=== PATIENT | male | born 1985 | race Caucasian/White ===

== ENCOUNTER 2023-10-04 10:29 | Emergency (ER) | payer OTHER, SELFPAY ==
[2023-10-04 10:39] VITALS: BP 128/87; PULSE 73; RESP 18; TEMP 36.6; O2SAT 96; BMI 33.5
--- NOTE | 2023-10-04 11:02 | ED_ITS ---
HPI - General Adult General Date Seen: 10/04/23 Chief complaint: Abdominal Pain Stated complaint: Abdominal pain Time Seen by Provider: 10/04/23 11:02 History of Present Illness HPI narrative: 37 yo male presenting to ER from home for evaluatio nof RUQ abd pain. History of an ulcer as a child requiring hospitalization (apparently ulcer lead to GI bleeding with anemia) also had symptoms of an ulcer about a year ago which was managed at home (he did not come to the doctor to have it evaluated). He is otherwise generally healthy. No regular medications. No allergies. He occasionally takes NSAIDs, but rarely. He has noted for about 5 days he has had a sharp pain in his right upper quadrant that comes and goes. At times it is more sharp and at times gets better. It improves markedly after eating. When severe makes him a bit nauseous but has not had any vomiting. No hematemesis. Bowel movements have been brown and normal. No bloody or black stools. No diarrhea. No lower abdominal pain. No fever or chills. No weakness. He suspects he probably has another ulcer, but just wanted to come in and get checked out . He has had no previous abdominal surgeries. Pain was fairly severe last night rating 8/10. It was present this morning but milder at about a 4 5/10. Right now his pain is actually gone for the moment. Related Data Home Medications ?Medication ?Instructions ?Recorded ?Confirmed bupropion HCl PO 10/04/23 Previous Rx's ?Medication ?Instructions ?Recorded omeprazole 40 mg capsule,delayed 40 mg PO DAILY #30 caps 10/04/23 release sucralfate 1 gram tablet (Carafate) 1 g PO TID PRN #30 tabs 10/04/23 Allergies Allergy/AdvReac Type Severity Reaction Status Date / Time No Known Drug Allergies Allergy Verified 10/04/23 10:43 Exam Narrative: Exam Narrative: Constitutional: Appears well-developed and well-nourished. Alert. Conversant. Non toxic. HENT: Head: Atraumatic. Nose: Nose normal. Mouth/Throat: Oral mucosa is clear and moist. no trismus. Eyes: Conjunctivae normal. EOM normal. Pupils equal, round, and reactive to light. No scleral icterus. Neck: Normal range of motion. Neck supple. No tracheal deviation present. Cardiovascular: Normal rate, regular rhythm. No gallop. No friction rub. No murmur heard. Symmetric radial artery pulses Pulmonary/Chest: Effort normal. No stridor. No respiratory distress. No wheezes. No rales. No rhonchi . No tenderness. Abdominal: Soft. Bowel sounds normal. No distension. No mass. No tenderness. No rebound. No guarding. No HSM. No Day sign. No CVA tenderness. No right lower quadrant tenderness. Musculoskeletal: RUE: Normal range of motion. No tenderness. No deformity LUE: Normal range of motion. No tenderness. No deformity RLE: Normal range of motion. No edema. No tenderness. No deformity LLE: Normal range of motion. No edema. No tenderness. No deformity Neurological: Alert and oriented to person, place, and time. Normal strength. CN II-VII intact. No sensory deficit. GCS eye subscore is 4. GCS verbal subscore is 5. GCS motor subscore is 6. Normal coordination Skin: Skin is warm and dry. No rash noted. No pallor. Normal capillary refill. Psychiatric: Normal mood. Normal affect. Const: Vital Signs, click to edit/add: Vital Signs - 24 hr 10/04/23 10:39 Temperature 97.9 F Pulse Rate [Left P ulse Oximeter] 73 Respiratory Rate 18 Blood Pressure [Le ft Upper Arm] 128/87 Pulse Oximetry 96 Oxygen Delivery Me thod Room Air Course Vital Signs Vital signs: Initial Vital Signs Temperature 97.9 F 10/04/23 10:39 Temperature Source Temporal Artery Scan 10/04/23 10:39 Pulse Rate 73 10/04/23 10:39 Pulse Rhythm Regular 10/04/23 10:39 Pulse Strength 3+ Normal 10/04/23 10:39 Respiratory Rate 18 10/04/23 10:39 Blood Pressure 128/87 10/04/23 10:39 Blood Pressure Mean 100 10/04/23 10:39 Blood Pressure Position Sitting 10/04/23 10:39 Pulse Oximetry 96 10/04/23 10:39 Oxygen Delivery Method Room Air 10/04/23 10:39 Vital Signs Temperature 97.9 F 10/04/23 10:39 Pulse Rate 73 10/04/23 10:39 Respiratory Rate 18 10/04/23 10:39 Blood Pressure 128/87 10/04/23 10:39 Pulse Oximetry 96 10/04/23 10:39 Oxygen Delivery Method Room Air 10/04/23 10:39 Temperature 97.9 F 10/04/23 10:39 Pulse Rate 73 10/04/23 10:39 Respiratory Rate 18 10/04/23 10:39 Blood Pressure 128/87 10/04/23 10:39 Pulse Oximetry 96 10/04/23 10:39 Oxygen Delivery Method Room Air 10/04/23 10:39 Medical Decision Making MDM Narrative Medical decision making narrative: Very pleasant 37-year-old male presenting to the ER today with a five-day histor y of fluctuating sharp pain in his right upper quadrant. He has a history of peptic ulcer disease and required hospitalization when he was a child because of a bleeding ulcer. However no confirmed ulcer disease for a couple of years. Clinical presentation suggest that this is probably a duodenal ulcer. He has had right upper quadrant pain, better after meals, for several days. There is no exam evidence for perforated ulcer and no peritoneal findings. White count is reassuring. No recent black or bloody stools to suggest upper GI bleed. He has stable pulse of blood pressure. Hemoglobin is high normal. No evidence for any recent or active GI bleeding. He is currently asymptomatic. He is well-hydrated and hemodynamically stable. He is nontoxic. Differential would also include biliary colic, cholecystitis, choledocholithiasis, pancreatitis, hepatitis. Laboratory workup is reassuring with normal white count, LFTs, lipase. In discussion with the patient and his we decided to hold off on gallbladder ultrasound because overall are current pretest likelihood for gallbladder disease is very low. Differential would also include atypical or early presentation of appendicitis. However he has had pain for 5 days. He has not had any right lower quadrant tenderness or pain. No migratory pain. White count normal. No fever. No CVA tenderness to suggest kidney stone or pyelonephritis No diarrhea or other GI symptoms to suggest diverticulitis, colitis. At this point, will hold off on CT imaging as there is low likelihood of any these other inflammatory/surgical conditions. Discussed with the patient that the only way to definitively confirm peptic ulcer disease or duodenal ulcer involved EGD. We will treat empirically though with PPI, Carafate and he will continue using Tums. He will follow up with his doctor for recheck and if necessary they can arrange EGD. Also consider a Helicobacter pylori testing. He rarely takes NSAIDs. He will avoid them going forward while this problems healing. Discussed with the patient that at this point peptic ulcer disease is a presumptive diagnosis but not definitive. If he has any worsening or changing symptoms he will return to the ER immediately for re-evaluation. If he is not improving he will follow-up with his primary care, or if unable to do that come back to the ER for recheck. Questions answered with the patient and his . They are comfortable with the plan for outpatient management and discharged without further workup at this point. Prescriptions for Carafate t.i.d. p.r.n. and for omeprazole 40 mg daily sent to his pharmacy. Lab Data Labs: Lab Results 10/04/23 Range/Units 11:40 WBC 5.75 (4.50-11.00) K/uL RBC 5.20 (4.30-5.90) m/uL Hgb 14.9 (13.5-17.5) gm/dL Hct 44.9 (37.0-53.0) % MCV 86 (80-100) fL MCH 29 (26-34) pg MCHC 33 (32-36) gm/dL RDW Coeff of Jenny 12.0 (11.5-15.5) % Plt Count 174 (140-440) K/uL Neut % (Auto) 45.4 (42.0-72.0) % Lymph % (Auto) 39.3 (20-44) % [place] % (Auto) 9.2 (0.0-11.0) % Eos % (Auto) 4.7 (0.0-7.0) % Baso % (Auto) 0.7 (0.0-3.0) % Neut # (Auto) 2.61 (1.7-7.0) K/uL Lymph # (Auto) 2.26 (0.90-2.90) K/uL [place] # (Auto) 0.50 (0.00-0.90) K/UL Eos # (Auto) 0.27 (0.00-0.50) K/uL Baso # (Auto) 0.04 (0.00-0.30) K/uL Abs Immat Gran (auto) 0.04 (0.00-0.30) K/uL Imm/Tot Granulo (auto) 0.7 % Sodium 138 (135-149) mmol/L Potassium 4.1 (3.6-5.1) mmol/L Chloride 103 (96-114) mmol/L Carbon Dioxide 28 (20-32) mmol/L Anion Gap 7 (7-15) mEq/L BUN 15 (5-24) mg/dL Creatinine 0.9 (0.5-1.5) mg/dL Estimated Creat Clear 106.61 Estimated GFR 111 ml/min Glucose 96 (60-115) mg/dL Calcium 9.0 (8.4-10.6) mg/dL Total Bilirubin 0.7 (0.1-1.5) mg/dL AST 28 (12-35) U/L ALT 33 (4-50) U/L Alkaline Phosphatase 55 (40-150) U/L Total Protein 7.2 (6.0-8.3) g/dL Albumin 4.5 (3.3-5.0) g/dL Lipase 124 (23-300) U/L Discharge Plan Discharge Clinical Impression: Abdominal pain, RUQ, Duodenal ulcer Patient Disposition: Home, Self-Care Condition: Stable Instructions: Peptic Ulcer (ED), Abdominal Pain (ED) Additional Instructions: As we discussed, we suspect that your pain is probably caused by an ulcer in the 1st part of her small intestine (called a duodenal ulcer). Usually we can get this also to heal by putting you on stomach acid medications. Start taking the anti acid medicine once every day for the next couple of weeks. It should take a few days and then your also will start to heal and feel better. In the meantime, to treat your pain, you can use [id number] antacids like Tums and you can also use the prescription medication Carafate. Monitor carefully and if you are having worsening symptoms, bloody or black stools, fever, jaundice, or any other problems, please come back to the ER right away to be rechecked Please recheck with your regular doctor within about 1 week for re-evaluation. You may need further workup such as Helicobacter pylori testing or endoscopy. Prescriptions: New omeprazole 40 mg capsule,delayed release(DR/EC) 40 mg PO DAILY Qty: 30 2RF sucralfate [Carafate] 1 gram tablet 1 g PO TID PRNQty: 30 0RF No Action bupropion HCl [Wellbutrin] PO Follow Up/Referrals: Provider,Not a Local [Primary Care Provider] - Stand Alone Forms: MyHealth Info Instructions
[2023-10-04 11:55] LABS: Basophils Absolute Auto 0.04 K/uL (0.00-0.30); Basophils Percent Auto 0.7 % (0.0-3.0); Eosinophils Absolute Auto 0.27 K/uL (0.00-0.50); Eosinophils Percent Auto 4.7 % (0.0-7.0); Hematocrit 44.9 % (37.0-53.0); Hemoglobin* 14.9 gm/dL (13.5-17.5); Immature Granulocytes Abs Auto 0.04 K/uL (0.00-0.30); Immature Granulocytes Pct Auto 0.7 %; Lymphocytes Absolute Auto 2.26 K/uL (0.90-2.90); Lymphocytes Percent Auto 39.3 % (20-44); Mean Corpuscular HGB Conc 33 gm/dL (32-36); Mean Corpuscular Hemoglobin 29 pg (26-34); Mean Corpuscular Volume 86 fL (80-100); Monocytes Percent Auto 9.2 % (0.0-11.0); Neutrophils Absolute Auto 2.61 K/uL (1.7-7.0); Neutrophils Percent Auto 45.4 % (42.0-72.0); Platelet Count* 174 K/uL (140-440); White Blood Count* 5.75 K/uL (4.50-11.00)
[2023-10-04 11:57] LABS: Slide Review Reflex No
[2023-10-04 12:01] LABS: Albumin* 4.5 g/dL (3.3-5.0); Chloride* 103 mmol/L (96-114); Potassium* 4.1 mmol/L (3.6-5.1); Sodium* 138 mmol/L (135-149)
[2023-10-04 12:03] LABS: Anion Gap 7 mEq/L (7-15); Bilirubin Total* 0.7 mg/dL (0.1-1.5); Carbon Dioxide* 28 mmol/L (20-32); Creatinine* 0.9 mg/dL (0.5-1.5); Est. Creatinine Clearance* 106.61; Estimated Glomerular Filt Rate 111 ml/min
[2023-10-04 12:04] LABS: Alanine Aminotransferase* 33 U/L (4-50); Alkaline Phosphatase* 55 U/L (40-150); Aspartate Amino Transferase* 28 U/L (12-35); Blood Urea Nitrogen* 15 mg/dL (5-24); Glucose* 96 mg/dL (60-115); Lipase* 124 U/L (23-300); Total Protein* 7.2 g/dL (6.0-8.3)
== END 2023-10-04 13:16 | disposition home or self-care (01) ==
PROVIDERS: Emergency Provider Emergency Medicine
DX: R10.11 Right upper quadrant pain (principal); K26.9 Duodenal ulcer, unspecified as acute or chronic, without hemorrhage or perforation
CPT/HCPCS: 36415; 80053; 83690; 85025; 87338; 99282; 99283; 99284

== ENCOUNTER 2023-10-17 20:22 | Emergency (ER) | payer OTHER, SELFPAY ==
[2023-10-17 20:41] VITALS: BP 130/80; PULSE 71; RESP 18; TEMP 36.9; O2SAT 97; BMI 33.5
[2023-10-17 21:00] LABS: Appearance Urine Clear (Clear); Bilirubin Urine Negative (Negative); Blood Urine Negative (Negative); Color Urine Yellow (Yellow); Glucose Urine Negative (Negative); Ketones Urine Negative (Negative); Leukocyte Esterase Urine Negative (Negative); Nitrite Urine Negative (Negative); Protein Urine Negative (Negative); Specific Gravity Urine 1.015 (1.000-1.030); Urobilinogen Urine 0.2 (0.2-1.0); pH Urine 5.5 (5.0-8.5)
--- NOTE | 2023-10-17 21:18 | ED.GENADULT ---
[facility] - General Adult General Date Seen: 10/17/23 Chief complaint: Abdominal Pain Stated complaint: possible hernia Time Seen by Provider: 10/17/23 21:13 Related Data Home Medications ?Medication ?Instructions ?Recorded ?Confirmed bupropion HCl PO 10/04/23 Previous Rx's ?Medication ?Instructions ?Recorded omeprazole 40 mg capsule,delayed 40 mg PO DAILY #30 caps 10/04/23 release sucralfate 1 gram tablet (Carafate) 1 g PO TID PRN #30 tabs 10/04/23 Allergies Allergy/AdvReac Type Severity Reaction Status Date / Time No Known Drug Allergies Allergy Verified 10/17/23 20:45 PFSH PFSH Social History Smoking Status: Never smoker Second hand tobacco smoke exposure: No How often do you have a drink containing alcohol: never How often do you have six or more drinks on one occasion: Never AUDIT-C Alcohol total score: 0 Non-prescribed substance use: denies use service: No Exam Const: Vital Signs, click to edit/add: Vital Signs - 24 hr 10/17/23 20:41 Temperature 98.4 F Pulse Rate [Pulse Oximeter] 71 Respiratory Rate 18 Blood Pressure [Ri ght Upper Arm] 130/80 Pulse Oximetry 97 Oxygen Delivery Me thod Room Air Course Vital Signs Vital signs: Initial Vital Signs Temperature 98.4 F 10/17/23 20:41 Temperature Source Temporal Artery Scan 10/17/23 20:41 Pulse Rate 71 10/17/23 20:41 Respiratory Rate 18 10/17/23 20:41 Blood Pressure 130/80 10/17/23 20:41 Blood Pressure Mean 96 10/17/23 20:41 Blood Pressure Position Sitting 10/17/23 20:41 Pulse Oximetry 97 10/17/23 20:41 Oxygen Delivery Method Room Air 10/17/23 20:41 Vital Signs Temperature 98.4 F 10/17/23 20:41 Pulse Rate 71 10/17/23 20:41 Respiratory Rate 18 10/17/23 20:41 Blood Pressure 130/80 10/17/23 20:41 Pulse Oximetry 97 10/17/23 20:41 Oxygen Delivery Method Room Air 10/17/23 20:41 Temperature 98.4 F 10/17/23 20:41 Pulse Rate 71 10/17/23 20:41 Respiratory Rate 18 10/17/23 20:41 Blood Pressure 130/80 10/17/23 20:41 Pulse Oximetry 97 10/17/23 20:41 Oxygen Delivery Method Room Air 10/17/23 20:41 Medical Decision Making Lab Data Labs: Lab Results 10/17/23 Range/Units 20:53 Urine Color Yellow (Yellow) Urine Appearance Clear (Clear) Urine pH 5.5 (5.0-8.5) Ur Specific [place] 1.015 (1.000-1.030) Urine Protein Negative (Negative) Urine Glucose (UA) Negative (Negative) Urine Ketones Negative (Negative) Urine Blood Negative (Negative) Urine Nitrite Negative (Negative) Urine Bilirubin Negative (Negative) Urine Urobilinogen 0.2 (0.2-1.0) Ur Leukocyte Esterase Negative (Negative) Discharge Plan Discharge Prescriptions: No Action bupropion HCl [Wellbutrin] PO omeprazole 40 mg capsule,delayed release(DR/EC) 40 mg PO DAILY Qty: 30 2RF sucralfate [Carafate] 1 gram tablet 1 g PO TID PRNQty: 30 0RF Follow Up/Referrals: Provider,Not a Local [Primary Care Provider] -
[2023-10-17 21:28] LABS: RBC Urine 0-2 (0-2); WBC Urine 0-2 (0-5)
--- OUTSIDE RECORDS SUMMARY | 2023-10-17 21:50 | XMS_ITS | Encounter Summary ---
Author Organization [facility] Address [address] [place] [address] Care Team Providers Care Flying Teacher Name Role Phone Doctor, None Unavailable Unavailable Wilbert Baltazar DO Primary Care Provider Sudheer Levy DO Unavailable [phone] Angella Weeks Unavailable [phone] Wilbert Baltazar DO Unavailable Angella Weeks Unavailable [phone] Amy Gentile MD Unavailable [phone] Sudheer Levy DO Unavailable [phone] Encounter Details Date Type Department Care Team (Late st Contact Info) Description 09/09/2021 MyC Medical Advice [facility] [address], [address] [place] [address] Wilbert Baltazar DO [address] [facility] [address] [place], [place] [address] Social History Tobacco Use Types Packs/Day Years Used Date Smoking Tobacco: Never Smokeless Tobacco: Never Alcohol Use Standard Drinks/Week Comments Yes 0 (1 standard drink = 0.6 oz pur e alcohol) occassional PHQ-2 Answer Date Recorded PHQ-2 Score 2 04/05/2021 Sex and Gender Information Value Date Recorded Sex Assigned at Not on file Gender Identity Not on file Sexual Orientation Not on file COVID-19 Exposure Response Date Recorded In the last 10 days, have yo u been in contact with someone who was confirmed or suspected to have Coronavirus/COVID-19? No / Unsure 09/10/2021 3:39 PM CDT documented as of this encounter Plan of Treatment Not on file documented as of this encounter Visit Diagnoses Not on filedocumented in this encounter Additional Health Concerns Infection Onset Date Last Indicated Resolved Time COVID-19 08/31/2021 08/31/2021 09/21/2021 11:3 9 PM CDT documented as of this encounter Care Teams Flying Teacher Relationship Specialty Start Date End Date Wilbert Baltazar DO [address] [place] [address] PCP - General 07/06/16 Any Chavez MD 03/25/13 Sudheer Levy DO [address] [place] [address] Assigned Sleep Provider 12/27/20 3 Angella Weeks PA [address] [place], [place] [address] Physician Restaurant Assistant Manager Urology 03/03/21 Wilbert Baltazar DO [address] [place] [address] Assigned PCP 03/07/21 Angella Weeks PA [address] [place], [place] [address] Assigned Surgical Provider 03/14/2110/07/22 Amy Gentile MD [address] [place] [address] [address] [place] [address] Assigned Endocrinology Provider 10/09/21 04/20/23 Sudheer Levy DO [address] [place] [address] Assigned Sleep Provider 05/30/23 documented as of this encounter
--- OUTSIDE RECORDS SUMMARY | 2023-10-17 21:50 | XMS_ITS | Encounter Summary ---
Author Organization [facility] Address [address] [place] [address] Care Team Providers Care Educational Director Name Role Phone Doctor, None Unavailable Unavailable Wilbert Baltazar DO Primary Care Provider Sudheer Levy DO Unavailable [phone] Angella Weeks Unavailable [phone] Wilbert Baltazar DO Unavailable [phone] Angella Weeks Unavailable Amy Gentile MD Unavailable [phone] Sudheer Levy DO Unavailable [phone] Encounter Details Date Type Department Care Team (Late st Contact Info) Description 06/29/2021 Orders Only [facility] Centralized Scheduling [address] [place] [phone] Ruddy Kaiser MD [address] [place] [address] Encounter for laboratory testing for COVID-19 virus Social History Tobacco Use Types Packs/Day Years [...] Recorded In the last 10 days, have gladys u been in contact with someone who was confirmed or suspected to have Coronavirus/COVID-19? No / Unsure 06/30/2021 8:05 AM CDT documented as of this encounter Plan of Treatment Not on file documented as of this encounter Results * Asymptomatic COVID-19 Virus (Coronavirus) by PCR Nose (06/30/2021 8:09 AM CDT) SARS CoV2 PCR Negative Negative, Testing sent to reference lab. Results will be returned via unsolicited result 06/30/2021 10:19 PM CDT [facility] Comment:NEGATIVE: SARS-CoV-2 (COVID-19) RNA not detected, presumed negative. Swab NASAL STRUCTURE / Unknown Non-blood Collection / Unknown 06/30/2021 8:09 AM CDT 06/30/2021 8:09 AM CDT Narrative [facility] - 06/30/2021 10:19 PM CDT Testing was performed using the Aptima SARS-CoV-2 Assay on the [employer] Instrument System. Additional information about this Emergency Use Authorization (EUA) assay can be found via the Lab Guide. This test should be ordered for the detection of SARS-CoV-2 in individuals who meet SARS-CoV-2 clinical and/or epidemiological criteria. Test performance is unknown in asymptomatic patients. This test is for in vitro diagnostic use under the FDA EUA for laboratories certified under CLIA to perform high complexity testing. This test has not been FDA cleared or approved. A negative result does not rule out the presence of PCR inhibitors in the specimen or target RNA in concentration below the limit of detection for the assay. The possibility of a false negative should be considered if the patient's recent exposure or clinical presentation suggests COVID-19. This test was validated by the [facility]. This laboratory is certified under the Clinical Laboratory Improvement Amendments of 1988 (CLIA-88) as qualified to perform high complexity laboratory testing. Ruddy Kaiser MD LAB - MICRO GENERAL ORDERABLES [facility] [address] [facility] [place] [address] [phone] documented in this encounter Visit Diagnoses Diagnosis Encounter for laboratory testing for COVID-19 virus documented in this encounter Additional Health Concerns Infection Onset Date Last Indicated Resolved Time Rule Out COVID-19 08/31/2021 08/31/2021 08/31/2021 6:10 PM CDT COVID-19 08/31/2021 08/31/2021 09/21/2021 11:3 9 PM CDT documented as of this encounter Care Teams Educational Director Relationship Specialty Start Date End Date Wilbert Baltazar, [address] [place] [address] PCP - General 07/06/16 Doctor[facility] MD 03/25/13 Sudheer Levy DO [address] [place] [address] Assigned Sleep Provider 12/27/20 3 Angella Weeks PA [address] [place] [address] Physician Yarn Dumper Urology 03/03/21 Wilbert Baltazar DO [address] [place] [address] Assigned PCP 03/07/21 Angella Weeks PA [address] [place] [address] Assigned Surgical Provider 03/14/2110/07/22 Amy Gentile MD [address] [place] [address] [address] [place] [address] Assigned Endocrinology Provider 10/09/21 04/20/23 Sudheer Levy DO [address] [address] Assigned Sleep Provider 05/30/23 documented as of this encounter
--- OUTSIDE RECORDS SUMMARY | 2023-10-17 21:50 | XMS_ITS | Encounter Summary ---
Author Organization [facility] Address [address] [place] [address] Care Team Providers Care Drafting Engineer Name Role Phone Doctor, None Unavailable Unavailable Wilbert Baltazar DO Primary Care Provider Jacinta Villegas MD Unavailable [phone] Sudheer Levy DO Unavailable [phone] Angella Weeks Unavailable [phone] Wilbert Baltazar DO Unavailable [phone] Angella Weeks Unavailable Amy Gentile MD Unavailable [phone] Sudheer Levy DO Unavailable [phone] Encounter Details Date Type Department Care Team (Late st Contact Info) Description [facility]/2020 [facility] Laurie Cisneros [facility] [address] [place] [id number] Social History Tobacco Use Types Packs/Day Years Used Date Smoking Tobacco: Never Smokeless Tobacco: Never Alcohol Use Standard Drinks/Week Comments Yes 0 (1 standard drink = 0.6 oz pur e alcohol) occassional PHQ-2 Answer Date Recorded PHQ-2 Score 0 05/14/2020 Sex and Gender Information Value Date Recorded Sex Assigned at Not on file Gender Identity Not on file Sexual Orientation Not on file COVID-19 Exposure Response Date Recorded In the last month, have you been in contact with someone who was confirmed or suspected to have Coronavirus / COVID-19? Yes 06/02/2020 2:07 PM CDT documented as of this encounter Plan of Treatment Not on file documented as of this encounter Visit Diagnoses Not on filedocumented in this encounter Additional Health Concerns Infection Onset Date Last Indicated Resolved Time COVID-19 05/31/2020 05/31/2020 06/21/2020 11:3 9 PM CDT Rule Out COVID-19 10/21/2020 10/21/2020 10/22/2020 5:50 PM CDT Rule Out COVID-19 08/31/2021 08/31/2021 08/31/2021 6:10 PM CDT COVID-19 08/31/2021 08/31/2021 09/21/2021 11:3 9 PM CDT documented as of this encounter Care Teams Drafting Engineer Relationship Specialty Start Date End Date Wilbert Baltazar DO [address] [place], [place] [address] PCP - General 07/06/16 [facility] MD 03/25/13 Jacinta Villegas MD [address] [place] [address] [address] [place], [place] [id number] Assigned PCP 07/22/20 03/06/21 Sudheer Levy DO [address] [id number] Assigned Sleep Provider 12/27/20 3 Angella Weeks PA [address] [place], [place] [id number] Physician Booster Plant Operator Urology 03/03/21 Wilbert Baltazar DO [address] [place], [place] [address] Assigned PCP 03/07/21 Angella Weeks PA [address] [address] Assigned Surgical Provider 03/14/2110/07/22 Amy Gentile MD [address] [place] [address] [address] [place], [place] [address] Assigned Endocrinology Provider 10/09/21 04/20/23 Sudheer Levy DO [address] [address] Assigned Sleep Provider 05/30/23 documented as of this encounter
--- OUTSIDE RECORDS SUMMARY | 2023-10-17 21:50 | XMS_ITS | Clinical Summary ---
Author Organization [facility] [facility] Address [place], [place] [address] Care Team Providers Care Gravity Prospecting Supervisor Name Role Phone Clinic, No Pcp Or Primary Care Provider Unavaila ble Allergies No known active allergies Medications Medication Sig Dispensed Refills Start Date End Date Status ibuprofen (ADVIL; MOTRIN) 200 mg tablet Take 200 mg by mouth. Active loratadine (CLARITIN) 10 mg tablet Take 10 mg by mouth. Active sildenafil citrate (VIAGRA) 50 mg tablet Take 50 mg by mouth. 01/15/2018 Active Encounters Date Type Department Care Team Description 10/06/2023 Telephone [facility] [address] [place] [address] [place], [place] Appointment 10/03/2023 Telephone [facility] [address] [place], [place] [address] [place] Appointment from Last 3 Months Family History Medical History Relation Name Comments Unknown Father Unknown Mother Relation Name Status Comments Father Alive Mother Alive Social History Tobacco Use Types Packs/Day Years Used Date Smoking Tobacco: Never Smokeless Tobacco: Never Alcohol Use Standard Drinks/Week Comments Yes 0 (1 standard drink = 0.6 oz pur e alcohol) Sex and Gender Information Value Date Recorded Sex Assigned at Not on file Gender Identity Not on file Sexual Orientation Not on file Obstetrics History Last Filed Vital Signs Vital Sign Reading Time Taken Comments Blood Pressure 115/76 12/13/2018 8:35 PM SEWAGE TREATMENT PLANT OPERATOR Pulse 62 12/13/2018 8:35 PM SEWAGE TREATMENT PLANT OPERATOR Temperature 36.9 ??C (98.4 ??F) 12/13/2018 8:35 PM CS T Respiratory Rate 18 12/13/2018 8:35 PM SEWAGE TREATMENT PLANT OPERATOR Oxygen Saturation 95% 12/13/2018 8:35 PM SEWAGE TREATMENT PLANT OPERATOR Inhaled Oxygen Concentration - - Weight 95.3 kg (210 lb) 12/13/2018 8:35 PM SEWAGE TREATMENT PLANT OPERATOR Height 170.2 cm (5' 7) 12/13/2018 8:35 PM SEWAGE TREATMENT PLANT OPERATOR Body Mass Index 32.89 12/13/2018 8:35 PM SEWAGE TREATMENT PLANT OPERATOR Plan of Treatment Upcoming Encounters Date Type Department Care Team (Late st Contact Info) Description 10/18/2023 1:00 PM CDT Appointment [facility] [address] [place] [address] Health Maintenance Due Date Last Done Comments Tdap 12/19/1994 Depression screening for age 12+ 1995 HIV for age 15-65 12/19/1998 Hepatitis C screening for ag e 18-79 12/19/2001 Tetanus booster 2003 BMI (ht and wt on same day) for age 18+ 04/04/2016 04/04/2015 Lipids for age 35-44 12/19/2018 COVID-19 vaccine series (2022- season) 2023 03/03/2021 Influenza for age 9-49 10/08/2023 Pneumococcal series for age 6-64 Aged Out No longer eligible based on patient's age to complete this topic Care Teams Gravity Prospecting Supervisor Relationship Specialty Start Date End Date Clinic, No Pcp Or . PCP - General 12/13/18
--- OUTSIDE RECORDS SUMMARY | 2023-10-17 21:50 | XMS_ITS | Encounter Summary ---
Author Organization [place] Address [address] [place] [address] Care Team Providers Care Global Security Architect Name Role Phone Doctor, None Unavailable Unavailable Wilbert Baltazar DO Primary Care Provider Jacinta Villegas MD Unavailable [phone] Sudheer Leyv DO Unavailable [phone] Angella Weeks Unavailable [phone] Wilbert Baltazar DO Unavailable [phone] Angella Weeks Unavailable Amy Gentile MD Unavailable [phone] Sudheer Levy DO Unavailable [phone] Encounter Details Date Type Department Care Team (Late st Contact Info) Description 09/24/2020 [facility] [address] [id number] [facility] Social History Tobacco Use Types Packs/Day Years Used Date Smoking Tobacco: Never Smokeless Tobacco: Never Alcohol Use Standard Drinks/Week Comments Yes 0 (1 standard drink = 0.6 oz pur e alcohol) occassional PHQ-2 Answer Date Recorded PHQ-2 Score 0 05/14/2020 Sex and Gender Information Value Date Recorded Sex Assigned at Not on file Gender Identity Not on file Sexual Orientation Not on file documented as of this encounter Plan of Treatment Not on file documented as of this encounter Visit Diagnoses Not on filedocumented in this encounter Additional Health Concerns Infection Onset Date Last Indicated Resolved Time Rule Out COVID-19 10/21/2020 10/21/2020 10/22/2020 5:50 PM CDT Rule Out COVID-19 08/31/2021 08/31/2021 08/31/2021 6:10 PM CDT COVID-19 08/31/2021 08/31/2021 09/21/2021 11:3 9 PM CDT documented as of this encounter Care Teams Global Security Architect Relationship Specialty Start Date End Date Wilbert Baltazar DO [address] [place] [address] PCP - General 07/06/16 DoctorAny MD 03/25/13 Jacinta Villegas MD [address] [place] [address] Assigned PCP 07/22/20 03/06/21 Sudheer Levy DO [address] [place] [address] Assigned Sleep Provider 12/27/20 3 Angella Weeks PA [address] [place], [place] [address] Physician Inspector Outside Production Urology 03/03/21 Wilbert Baltazar DO [address] [place] [address] Assigned PCP 03/07/21 Angella Weeks PA [address] [place] [address] Assigned Surgical Provider 03/14/2110/07/22 Amy Gentile MD [address] [place] [address] 101 [place] [address] Assigned Endocrinology Provider 10/09/21 04/20/23 Sudheer Levy DO [address] [facility] [address] [place] [address] Assigned Sleep Provider 05/30/23 documented as of this encounter
--- OUTSIDE RECORDS SUMMARY | 2023-10-17 21:50 | XMS_ITS | Encounter Summary ---
Author Organization [facility] Address [address] [place] [address] Care Team Providers Care Sand Bobber Name Role Phone Doctor, None Unavailable Unavailable Wilbert Baltazar DO Primary Care Provider Jacinta Villegas MD Unavailable [phone] Sudheer Levy DO Unavailable [phone] Angella Weeks Unavailable [phone] Wilbert Baltazar DO Unavailable [phone] Angella Weeks Unavailable Amy Gentile MD Unavailable [phone] Sudheer Levy DO Unavailable [phone] Encounter Details Date Type Department Care Team (Late st Contact Info) Description 12/23/2020 [facility] [address], [address] [place] [address] Laura Garcia Social History Tobacco Use Types Packs/Day Years [...] documented as of this encounter Care Teams Sand Bobber Relationship Specialty Start Date End Date Wilbert Baltazar DO [address] [place] [address] PCP - General 07/06/16 DoctorAny MD 03/25/13 Jacinta Villegas MD [address] [place] [address] 96 [place], [place] [id number] Assigned PCP 07/22/20 03/06/21 Sudheer Levy DO [address] [place] [address] Assigned Sleep Provider 12/27/20 3 Angella Weeks PA [address] [place] [address] Physician Tower Air Traffic Control Specialist Urology 03/03/21 Wilbert Baltazar DO [address] [place] [address] Assigned PCP 03/07/21 Angella Weeks PA [address] [place] [address] Assigned Surgical Provider 03/14/2110/07/22 Amy Gentile MD [address] [place] [address] 101 [place] [address] Assigned Endocrinology Provider 10/09/21 04/20/23 Sudheer Levy DO [address] [place] [address] Assigned Sleep Provider 05/30/23 documented as of this encounter
--- OUTSIDE RECORDS SUMMARY | 2023-10-17 21:50 | XMS_ITS | Encounter Summary ---
Author Organization [place] Address [address] [place] [address] Care Team Providers Care Machine Erector Name Role Phone Doctor, None Unavailable Unavailable Wilbert Baltazar DO Primary Care Provider Sudheer Levy DO Unavailable [phone] Angella Weeks Unavailable [phone] Wilbert Baltazar DO Unavailable [phone] Angella Weeks Unavailable [phone] Amy Gentile MD Unavailable [phone] Sudheer Levy DO Unavailable [phone] Encounter Details Date Type Department Care Team (Late st Contact Info) Description 11/02/2021 MyC Medical Advice [facility] [address] [place] [address] [place], [address] [place] [address] Geneva Monahan RN Social History Tobacco Use Types Packs/Day Years Used Date Smoking Tobacco: Never Smokeless Tobacco: Never Alcohol Use Standard Drinks/Week Comments Yes 0 (1 standard drink = 0.6 oz pur e alcohol) occassional PHQ-2 Answer Date Recorded PHQ-2 Score 3 10/04/2021 Sex and Gender Information Value Date Recorded Sex Assigned at Not on file Gender Identity Not on file Sexual Orientation Not on file COVID-19 Exposure Response Date Recorded In the last 10 days, have yo u been in contact with someone who was confirmed or suspected to have Coronavirus/COVID-19? No / Unsure 10/13/2021 9:11 AM CDT documented as of this encounter Plan of Treatment Not on file documented as of this encounter Visit Diagnoses Not on filedocumented in this encounter Additional Health Concerns Assessment Noted Time PHQ-9 Depression Total Score: 7 10/05/19 22 5:49 PM CDT documented as of this encounter Care Teams Machine Erector Relationship Specialty Start Date End Date Wilbert Baltazar DO [address] [place] [address] PCP - General 07/06/16 Any Chavez MD 03/25/13 Sudheer Levy DO [address] [place] [address] Assigned Sleep Provider 12/27/20 3 Angella Weeks PA [address] [place] [address] Physician Rod Piler Urology 03/03/21 Wilbert Baltazar DO [address] [place] [address] Assigned PCP 03/07/21 Angella Weeks PA [address] [place] [address] Assigned Surgical Provider 03/14/2110/07/22 Amy Gentile MD [address] [place] [address] 101 [place] [address] Assigned Endocrinology Provider 10/09/21 04/20/23 Sudheer Levy DO [address] [place] [address] Assigned Sleep Provider 05/30/23 documented as of this encounter
--- OUTSIDE RECORDS SUMMARY | 2023-10-17 21:50 | XMS_ITS | Clinical Summary ---
Author Organization [facility] Address [address] [place] [address] Care Team Providers Care Mushroom Sorter Grader Name Role Phone Doctor, None MD Unavailable Unavailable Wilbert Baltazar DO Primary Care Provider Angella Weeks Unavailable [phone] Wilbert Baltazar DO Unavailable [phone] Sudheer Levy DO Unavailable [phone] Allergies No known active allergies Medications Medication Sig Dispensed Refills Start Date End Date Status omeprazole (PRILOSEC OTC) 20 MG EC tablet Take 20 mg by mouth daily Active cetirizine (ZYRTEC) 10 MG tablet Take 10 mg by mouth daily Active ibuprofen (ADVIL/MOTRIN) 200 MG tablet Take 200 mg by mouth Active loratadine (CLARITIN) 10 MG tablet Take 10 mg by mouth Active propranolol (INDERAL) 10 MG tabletIndications:Anx iety Take 1-2 tablets (10-20 mg) by mouth 3 times daily 30 tablet 1 06/21/2023 Active buPROPion (WELLBUTRIN XL) 150 MG 24 hr tabletIndications:Anx iety Take 1 tablet (150 mg) by mouth every morning 90 tablet 1 08/21/2023 Active Active Problems Problem Noted Date Diagnosed Date Class 2 severe obesity due t o excess calories with serious comorbidity in adult 06/21/2023 History of COVID-19 10/04/2021 Thyrotoxicosis without thyro id storm, unspecified thyrotoxicosis type 10/04/2021 Esophageal Reflux Overview: Created by Conversion Encounters Date Type Department Care Team Description 08/21/2023 [facility] [address], [address] [place] [address] Wilbert Baltazar, DO Refill Request from Last 3 Months Immunizations Name Administration Dates Next Due COVID-19 Monovalent 12+ (Pfizer 2021) 03/03/2021 HPV9 03/03/2021 Influenza Vaccine >6 months,quad, PF 11/06/2020, 11/13/2018 Influenza Vaccine, 6+MO IM ( QUADRIVALENT W/PRESERVATIVES) 10/20/2011 TDAP (Adacel,Boostrix) 04/29/2009 Family History Medical History Relation Comments Testicular cancer Brother Thyroid Disease Brother Fibromyalgia Father Snoring Father Heart Disease Maternal Grandfather Cerebrovascular Disease Mother Heart Disease Mother Hypertension Mother Snoring Mother Diabetes No family hx of Relation Status Comments Brother Father Maternal Grandfather Mother Social History Tobacco Use Types Packs/Day Years Used Date Smoking Tobacco: Never Passive Smoke Exposure: Past Smokeless Tobacco: Never Alcohol Use Standard Drinks/Week Comments Yes 0 (1 standard drink = 0.6 oz pur e alcohol) occassional PHQ-2 Answer Date Recorded PHQ-2 Score 2 06/21/2023 Adolescent Education Answer Date Record ed Getting School Help Needed Not on file 11/04 Interpersonal Safety Answer Date Record ed Do you feel physically and e motionally safe where you currently live? Yes 06/21/2023 Within the past 12 months, h ave you been hit, slapped, kicked or otherwise physically hurt by someone? No 06/21/2023 Within the past 12 months, h ave you been humiliated or emotionally abused in other ways by your partner or ex-partner? No 06/21/2023 Sex and Gender Information Value Date Recorded Sex Assigned at Not on file Gender Identity Not on file Sexual Orientation Not on file Last Filed Vital Signs Vital Sign Reading Time Taken Comments Blood Pressure 106/64 06/21/2023 1:19 PM CDT Pulse 68 06/21/2023 1:19 PM CDT Temperature 37.2 ??C (98.9 ??F) 06/21/2023 1:19 PM CD T Respiratory Rate 14 06/21/2023 1:19 PM CDT Oxygen Saturation 97% 06/21/2023 1:19 PM CDT Inhaled Oxygen Concentration - - Weight 111.4 kg (245 lb 8 oz) 06/21/2023 1:19 PM CDT Height 172.7 cm (5' 8) 06/21/2023 1:19 PM CDT Body Mass Index 37.33 06/21/2023 1:19 PM CDT Plan of Treatment Health Maintenance Due Date Last Done Comments ADVANCE CARE PLANNING 1983 ANNUAL REVIEW OF HM ORDERS 1983 HEPATITIS B IMMUNIZATION (1 of 3 - 19+ 3-dose series) 12/19/2002 YEARLY PREVENTIVE VISIT 10/16/2015 10/15/2014, 10/15 DTAP/TDAP/TD IMMUNIZATION (2 - Td or Tdap) 04/30/2019 04/29/2009 HPV IMMUNIZATION (2 - 3-dose SCDM series) 03/31/2021 03/03/2021 COVID-19 Vaccine ( season) 2023 03/03/2021, 06/17/2020, 05/27/2020 INFLUENZA VACCINE (#1) 2023 , 11/13/2018, 10/20/2011 GLUCOSE 06/20/2026 06/21/2023, 0806/2021, 03/03/2021, Additional history exists HEPATITIS C SCREENING Completed 07/11/2016 HIV SCREENING Completed 07/11/2016 PHQ-2 (once per calendar year) Completed 06/21/2023, 05/15/2023, 10/04/2021, Additional history exists MENINGITIS IMMUNIZATION Aged Out No l onger eligible based on patient's age to complete this topic Pneumococcal Vaccine: Pediatrics (0 to 5 Years) and At-Risk Patients (6 to 64 Years) Aged Out No longer eligible based on patient's age to complete this topic RSV MONOCLONAL ANTIBODY Aged Out No l onger eligible based on patient's age to complete this topic Procedures Procedure Name Priority Date/Time Associated Diagnosis Comments COMPREHENSIVE METABOLIC PANEL Routine 06/21/2023 1:58 PM CDT Fatigue, unspecified type HIV ANTIGEN ANTIBODY COMBO Routine 07/11/2016 2:40 PM CDT HEPATITIS C ANTIBODY Routine 07/11/2016 2:40 PM CDT from Last 3 Months or Most Recently Relevant to Health Maintenance Results * Comprehensive metabolic panel (BMP + Alb, Alk Phos, ALT, AST, Total. Bili, TP) (06/21/2023 1:58 PM CDT) Sodium 139 135 - 145 mmol/L 06/22/2023 5:15 PM CDT [facility] Comment:Reference intervals for this test were updated on 11/01/2022 to more accurately reflect our healthy population. There may be differences in the flagging of prior results with similar values performed with this method. Interpretation of those prior results can be made in the context of the updated reference intervals. Potassium 4.2 3.4 - 5.3 mmol/L 06/22/2023 5:15 PM CDT [facility] Carbon Dioxide (CO2) 24 22 - 29 mmol/L 06/22/2023 5:15 PM CDT [facility] Anion Gap 11 7 - 15 mmol/L 06/22/2023 5:15 PM CDT [facility] Urea Nitrogen 15.0 6.0 - 20.0 mg/dL 06/22/2023 5:15 PM CDT [facility] Creatinine 1.10 0.67 - 1.17 mg/dL 06/22/2023 5:15 PM CDT [facility] GFR Estimate 88 >60 mL/min/1. 73m2 06/22/2023 5:15 PM CDT [facility] Calcium 8.7 8.6 - 10.0 mg/dL 06/22/2023 5:15 PM CDT [facility] Chloride 104 98 - 107 mmol/L 06/22/2023 5:15 PM CDT [facility] Glucose 91 70 - 99 mg/dL 06/22/2023 5:15 PM CDT [facility] Alkaline Phosphatase 58 40 - 150 U/L 06/22/2023 5:15 PM CDT [facility] Comment:Reference intervals for this test were updated on 2022 to more accurately reflect our healthy population. There may be differences in the flagging of prior results with similar values performed with this method. Interpretation of those prior results can be made in the context of the updated reference intervals. AST 26 0 - 45 U/L 06/22/2023 5:15 PM CDT [facility] Comment:Reference intervals for this test were updated on 07/18/2022 to more accurately reflect our healthy population. There may be differences in the flagging of prior results with similar values performed with this method. Interpretation of those prior results can be made in the context of the updated reference intervals. ALT 32 0 - 70 U/L 06/22/2023 5:15 PM CDT [facility] Comment:Reference intervals for this test were updated on 07/18/2022 to more accurately reflect our healthy population. There may be differences in the flagging of prior results with similar values performed with this method. Interpretation of those prior results can be made in the context of the updated reference intervals. Protein Total 7.2 6.4 - 8.3 g/dL 06/22/2023 5:15 PM CDT [facility] Albumin 4.6 3.5 - 5.2 g/dL 06/22/2023 5:15 PM CDT [facility] Bilirubin Total 0.6 <=1.2 mg/dL 06/22/2023 5:15 PM CDT [facility] Blood BLOOD SPECIMEN / Unknown Venipuncture / Unknown 06/21/2023 1:58 PM CDT 06/21/2023 1:58 PM CDT Wilbert Lee DO LAB - BLOOD OR DERABLES [facility] [place] [facility] [address] [place] [address] [facility], Room [address] [place] [id number] * HIV Antigen Antibody Combo (07/11/2016 2:40 PM CDT) [facility] Antigen Antibody Combo Negative Negative 07/11/2016 9:54 PM CDT [facility] Blood specimen (specimen) Venipuncture / Unknown 07/11/2016 2:40 PM CDT 07/11/2016 9:03 PM CDT Wilbert Lee DO LAB - BLOOD OR DERABLES [facility] [address] [address], [facility] [address] [address] * Hepatitis C antibody (07/11/2016 2:40 PM CDT) Hepatitis C Antibody Negative Negative 07/12/2016 8:22 AM CDT [facility] Blood specimen (specimen) Venipuncture / Unknown 07/11/2016 2:40 PM CDT 07/11/2016 9:03 PM CDT Wilbert Lee DO LAB - BLOOD OR DERABLES Performing Organization Address [facility] Co de Phone Number [facility] [address] [address], [facility] [address] [place] [address] from Last 3 Months or Most Recently Relevant to Health Maintenance Care Teams Mushroom Sorter Grader Relationship Specialty Start Date End Date Wilbert Baltazar DO [address] [place] [address] PCP - General 07/06/16 Doctor, Any, 03/25/13 Angella Weeks PA [address] [place] [address] Physician Service Member Urology 03/03/21 Wilbert Baltazar DO [address] [place] [address] Assigned PCP 03/07/21 Sudheer Levy DO [address] [place], [place] [address] Assigned Sleep Provider 05/30/23
--- OUTSIDE RECORDS SUMMARY | 2023-10-17 21:50 | XMS_ITS | Referral Summary ---
Author Organization [facility] Address [address] [place] [address] Care Team Providers Care Gas Or Water Meter Installer Name Role Phone Doctor, None MD Unavailable Unavailable Wilbert Baltazar DO Primary Care Provider Angella Weeks Unavailable [phone] Wilbert Baltazar DO Unavailable [phone] Sudheer Levy DO Unavailable [phone] Encounters Date Type Department Care Team Description 08/21/2023 Refill [facility] [address] [facility], [address] [place] [address] Wilbert Baltazar, Refill Request from Last 3 Months Allergies No known active allergies Medications Medication [...] 10/04/2021 Esophageal Reflux Overview: Created by Conversion Immunizations Name Administration Dates Next Due COVID-19 Monovalent 12+ (Pfizer 2021) 03/03/2021 HPV9 03/03/2021 Influenza Vaccine >6 months,quad, PF 11/06/2020, 11/13/2018 Influenza Vaccine, 6+MO IM ( QUADRIVALENT W/PRESERVATIVES) 10/20/2011 TDAP (Adacel,Boostrix) 04/29/2009 Social History Tobacco Use Types Packs/Day Years [...] 06/21/2023 1:19 PM CDT Plan of Treatment Not on file Procedures Procedure Name Priority Date/Time Associated Diagnosis [...] LAB - BLOOD OR DERABLES [facility] [place] [facility] [address] [facility], [address] [place] [id number], [facility] * HIV Antigen Antibody Combo (07/11/2016 2:40 PM CDT) [facility] HIV Antigen Antibody Combo Negative Negative 07/11/2016 9:54 PM CDT [facility] Blood specimen (specimen) Venipuncture / Unknown 07/11/2016 2:40 PM CDT 07/11/2016 9:03 PM CDT Wilbert Lee DO LAB - BLOOD OR DERABLES Performing Organization Address [facility] Co de Phone Number [facility] [address] [address], [facility] [address] [address] * Hepatitis C antibody (07/11/2016 2:40 PM CDT) [facility] Hepatitis C Antibody Negative Negative 07/12/2016 8:22 AM CDT [facility] Blood specimen (specimen) Venipuncture / Unknown 07/11/2016 2:40 PM CDT 07/11/2016 9:03 PM CDT Wilbert Lee DO LAB - BLOOD OR DERABLES Performing Organization Address [facility] de Phone Number [facility] [address] [address], [address] [address] from Last 3 Months or Most Recently Relevant to Health Maintenance Care Teams Gas Or Water Meter Installer Relationship Specialty Start Date End Date Wilbert Baltazar DO [address] [facility] [address] [place] [address] PCP - General 07/06/16 DoctorAny MD 03/25/13 Angella Weeks PA [address] [facility] [address] [place] [address] Physician Boy'S Adviser Urology 03/03/21 Wilbert Baltazar DO [address] [facility] [address] [place] [address] Assigned PCP 03/07/21 Sudheer Levy DO [address] [facility] [address] [place] [address] Assigned Sleep Provider 05/30/23
--- OUTSIDE RECORDS SUMMARY | 2023-10-17 21:50 | XMS_ITS | Encounter Summary ---
Author Organization [place] Address [address] [place] [address] Care Team Providers Care Granite Sandblaster Apprentice Name Role Phone Doctor, None Unavailable Unavailable Wilbert Baltaazr DO Primary Care Provider Sudheer Levy DO Unavailable [phone] Angella Weeks Unavailable [phone] Wilbert Baltazar DO Unavailable Angella Weeks Unavailable Amy Gentile MD Unavailable Sudheer Leyv DO Unavailable Reason for Visit * Reason Onset Date Comments MyChart Communication 09/21/2021 Thyroid la bs follow-up Encounter Details Date Type Department Care Team (Late st Contact Info) Description 09/21/2021 MyC Medical Advice [facility] [address], [address] [place] [address] Wilbert Baltazar DO [address] [facility] [address] [place] [address] MyChart Communication (Thyroid labs follow... Social History Tobacco Use Types Packs/Day Years [...] suspected to have Coronavirus/COVID-19? No / Unsure 09/23/2021 2:27 PM CDT documented as of this encounter Miscellaneous Notes * Telephone Encounter - Helen Johnson RN - 09/28/2021 7:25 AM CDT DD, Please see below MyChart message and advise. Helen Leong RN documented in this encounter Plan of Treatment Not on file documented as of this encounter Visit Diagnoses Not on filedocumented in this encounter Additional Health Concerns Infection Onset Date Last Indicated Resolved Time COVID-19 08/31/2021 08/31/2021 09/21/2021 11:3 9 PM CDT documented as of this encounter Care Teams Granite Sandblaster Apprentice Relationship Specialty Start Date End Date Wilbert Baltazar DO [address] [id number] PCP - General 07/06/16 DoctorAny MD 03/25/13 Sudheer Levy DO [address] 122774 Assigned Sleep Provider 12/27/20 3 Angella Weeks PA [address] [facility] 106 [place], [place] [id number] Physician Esthetician Urology 03/03/21 Wilbert Baltazar DO [address] 916386 Assigned PCP 03/07/21 Angella Weeks PA [address] [address] 843254 Assigned Surgical Provider 03/14/2110/07/22 Amy Gentile MD [address] [place] [address]6915 Assigned Endocrinology Provider 10/09/21 04/20/23 Sudheer Levy DO [address] 540864 Assigned Sleep Provider 05/30/23 documented as of this encounter
--- OUTSIDE RECORDS SUMMARY | 2023-10-17 21:50 | XMS_ITS | Encounter Summary ---
Author Organization [place] Address [address] [place] [address] Care Team Providers Care Presentation Team Member Name Role Phone Doctor, None Unavailable Unavailable Wilbert Baltazar DO Primary Care Provider Jacinta Villegas MD Unavailable [phone] Sudheer Levy DO Unavailable [phone] Angella Weeks Unavailable [phone] Wilbert Baltazar DO Unavailable [phone] Angella Weeks Unavailable [phone] Amy Gentile MD Unavailable [phone] Sudheer Levy DO Unavailable [phone] Encounter Details Date Type Department Care Team (Late st Contact Info) Description [facility] Cisner[facility] [address] [facility] [address] [place] [address] Social History Tobacco Use Types Packs/Day Years Used Date Smoking Tobacco: Never Smokeless Tobacco: Never Alcohol Use Standard Drinks/Week Comments Yes 0 (1 standard drink = 0.6 oz pur e alcohol) PHQ-2 Answer Date Recorded PHQ-2 Score 0 [...] documented as of this encounter Care Teams Presentation Team Member Relationship Specialty Start Date End Date Wilbert Baltazar DO [address] [place] [place], [place] [address] PCP - General 07/06/16 DoctorAny MD 03/25/13 Jacinta Villegas MD [address] [facility] 96 [place], [place] [id number] Assigned PCP 07/22/20 03/06/21 Sudheer Levy DO [address] 436444 Assigned Sleep Provider 12/27/20 3 Angella Weeks PA [address] [place] [place], [place] [id number] Physician Arrt Technologist Urology 03/03/21 Wilbert Baltazar DO [address] [place] [place], [place] [address]406 Assigned PCP 03/07/21 Angella Weeks PA [address] 192194 Assigned Surgical Provider 03/14/2110/07/22 Amy Gentile MD [address] [place] [address] 752925 Assigned Endocrinology Provider 10/09/21 04/20/23 Sudheer Levy DO [address] 274294 Assigned Sleep Provider 05/30/23 documented as of this encounter
--- OUTSIDE RECORDS SUMMARY | 2023-10-17 21:50 | XMS_ITS | Encounter Summary ---
Author Organization [place] Address [address] [place] [address]. [place] [address] Care Team Providers Care Sericulture Teacher Name Role Phone Doctor, None MD Unavailable Unavailable Wilbert Baltazar DO Primary Care Provider Angella Weeks Unavailable [phone] Wilbert Baltazar DO Unavailable + [phone] Sudheer Levy DO Unavailable [phone] Reason for Visit * Reason Onset Date Comments Refill Request 08/21/2023 Encounter Details Date Type Department Care Team (Late st Contact Info) Description 08/21/2023 [facility] [address] [facility], [address] [place] [phone] Wilbert Baltazar, DO [address] [facility] [address] [place], [place] [address] Refill Request Social History Tobacco Use Types Packs/Day Years [...] documented as of this encounter Visit Diagnoses Diagnosis Anxiety Anxiety state, unspecified documented in this encounter Additional Health Concerns Assessment Noted Time PHQ-9 Depression Total Score: 7 10/05/19 22 5:49 PM CDT documented as of this encounter Care Teams Sericulture Teacher Relationship Specialty Start Date End Date Wilbert Baltazar DO [address] [employer] [facility] 275 [place] [address] PCP - General 07/06/16 Doctor, Any, 03/25/13 Angella Weeks PA [facility] [employer] [address] [address] Physician Bending Roll Operator Urology 03/03/21 Wilbert Baltazar DO [facility] [employer] [facility] 275 [place] [address] Assigned PCP 03/07/21 Sudheer Levy DO [address] [facility] 106 [place] [address] Assigned Sleep Provider 05/30/23 documented as of this encounter
--- OUTSIDE RECORDS SUMMARY | 2023-10-17 21:50 | XMS_ITS | Encounter Summary ---
Author Organization [place] Address [address] [place] [address] Care Team Providers Care Statement Services Representative Name Role Phone Doctor, None Unavailable Unavailable Wilbert Baltazar DO Primary Care Provider Jacinta Villegas MD Unavailable [phone] Sudheer Levy DO Unavailable [phone] Angella Weeks Unavailable [phone] Wilbert Baltazar DO Unavailable [phone] Angella Weeks Unavailable Amy Gentile MD Unavailable [phone] Sudheer Levy DO Unavailable [phone] Encounter Details Date Type Department Care Team (Late st Contact Info) Description 06/15/2020 Documentation Only [facility] [address] [place] [phone] Unknown, Provider Social History Tobacco Use Types Packs/Day Years [...] documented as of this encounter Care Teams Statement Services Representative Relationship Specialty Start Date End Date Wilbert Baltazar DO [address] [place] [place], [place] [address] PCP - General 07/06/16 DoctorAny MD 03/25/13 Jacnita Villegas MD [address] [facility] 96 [place], [place] [id number] Assigned PCP 07/22/20 03/06/21 Sudheer Levy DO [address] [place], [place] [address] Assigned Sleep Provider 12/27/20 3 Angella Weeks PA [address] [place], [place] [address] Physician Frame Changer Urology 03/03/21 Wilbert Baltazar DO [address] [place] [address] Assigned PCP 03/07/21 Angella Weeks PA [address] [facility] 106 [place] [address] Assigned Surgical Provider 03/14/2110/07/22 Amy Gentile MD [address] [place] [address] 101 [place] [address] Assigned Endocrinology Provider 10/09/21 04/20/23 Sudheer Levy DO [address] [facility] 106 [place], [place] [address]28[address] Assigned Sleep Provider 05/30/23 documented as of this encounter
--- OUTSIDE RECORDS SUMMARY | 2023-10-17 21:50 | XMS_ITS | Encounter Summary ---
Author Organization [place] Address [address] [place] [address] Care Team Providers Care Global President Name Role Phone Doctor, None Unavailable Unavailable Wilbert Baltazar DO Primary Care Provider Sudheer Levy DO Unavailable [phone] Angella Weeks Unavailable [phone] Wilbert Baltazar DO Unavailable [phone] Angella Weeks Unavailable [phone] Amy Gentile MD Unavailable [phone] Sudheer Levy DO Unavailable [phone] Encounter Details Date Type Department Care Team (Late st Contact Info) Description 04/06/2021 [facility] Sleep [address] [address] Selvin [place] Social History Tobacco Use Types Packs/Day Years [...] as of this encounter Care Teams Global President Relationship Specialty Start Date End Date Wilbert Baltazar DO [address] [place] [address] PCP - General 07/06/16 Any Chavez MD 03/25/13 Sudheer Levy DO [address] [place] [place] [address] Assigned Sleep Provider 12/27/20 3 Angella Weeks PA [address] [place] [place] [address] Physician Propeller Driven Airplane Mechanic Urology 03/03/21 Wilbert Baltazar DO [address] [place] [address] Assigned PCP 03/07/21 Angella Weeks PA [address] [place] [place] [address] Assigned Surgical Provider 03/14/2110/07/22 Amy Gentile MD [address] [place] [address] 101 [place] [address] Assigned Endocrinology Provider 10/09/21 04/20/23 Sudheer Levy DO [address] [place] [place] [address] Assigned Sleep Provider 05/30/23 documented as of this encounter
--- OUTSIDE RECORDS SUMMARY | 2023-10-17 21:50 | XMS_ITS | Encounter Summary ---
Author Organization [place] Address [address] [place] [address] Care Team Providers Care Assistant Hvac Mechanic Name Role Phone Doctor, None Unavailable Unavailable Wilbert Baltazar DO Primary Care Provider Sudheer Levy DO Unavailable [phone] Angella Weeks Unavailable [phone] Wilbert Baltazar DO Unavailable [phone] Angella Weeks Unavailable [phone] Amy Gentile MD Unavailable [phone] Sudheer Levy DO Unavailable [phone] Encounter Details Date Type Department Care Team (Late st Contact Info) Description 03/30/2021 [facility] [address] [phone] Kellen Granda CMA Social History Tobacco Use Types Packs/Day Years Used Date Smoking Tobacco: Never Smokeless Tobacco: Never Alcohol Use Standard Drinks/Week Comments Yes 0 (1 standard drink = 0.6 oz pur e alcohol) occassional PHQ-2 Answer Date Recorded PHQ-2 Score 2 03/03/2021 Sex and Gender Information Value Date Recorded Sex Assigned at Not on file Gender Identity Not on file Sexual Orientation Not on file COVID-19 Exposure Response Date Recorded In the last month, have you been in contact with someone who was confirmed or suspected to have Coronavirus / COVID-19? No / Unsure 03/03/2021 10:23 AM COMBO WELDER documented as of this encounter Plan of Treatment Not on file documented as of this encounter Visit Diagnoses Not on filedocumented in this encounter Additional Health Concerns Infection Onset Date Last Indicated Resolved Time Rule Out COVID-19 08/31/2021 08/31/2021 08/31/2021 6:10 PM CDT COVID-19 08/31/2021 08/31/2021 09/21/2021 11:3 9 PM CDT documented as of this encounter Care Teams Assistant Hvac Mechanic Relationship Specialty Start Date End Date Wilbert Baltazar, DO [address] [place] [address] PCP - General 07/06/16 DoctorAny MD 03/25/13 Sudheer Levy DO [address] [place] [address] Assigned Sleep Provider 12/27/20 3 Angella Weeks PA [address] [place], [place] [address] Physician Clinical Phlebotomist Urology 03/03/21 Wilbert Baltazar DO [address] [place] [address] Assigned PCP 03/07/21 Angella Weeks PA [address] [place], [place] [address] Assigned Surgical Provider 03/14/2110/07/22 Amy Gentile MD [address] [place] [address] 101 [place] [address] Assigned Endocrinology Provider 10/09/21 04/20/23 Sudheer Levy DO [address] [address] Assigned Sleep Provider 05/30/23 documented as of this encounter
--- OUTSIDE RECORDS SUMMARY | 2023-10-17 21:50 | XMS_ITS | Encounter Summary ---
Author Organization [place] Address [address] [place] [address] Care Team Providers Care Tender Coordinator Name Role Phone Doctor, None Unavailable Unavailable Wilbert Baltazar DO Primary Care Provider Jacinta Villegas MD Unavailable [phone] Sudheer Levy DO Unavailable [phone] Angella Weeks Unavailable [phone] Wilbert Balatzar DO Unavailable [phone] Angella Weeks Unavailable [phone] Amy Gentile MD Unavailable [phone] Sudheer Levy DO Unavailable [phone] Encounter Details Date Type Department Care Team (Late st Contact Info) Description 12/15/2020 [facility] [address] [phone] Kellen Granda CMA Social History Tobacco Use [...] documented as of this encounter Care Teams Tender Coordinator Relationship Specialty Start Date End Date Wilbert Baltazar DO [address] [place] [address] PCP - General 07/06/16 DoctorAny MD 03/25/13 Jacinta Villegas MD [address] [place] [address] Assigned PCP 07/22/20 03/06/21 Sudheer Levy DO [address] [place] [address] Assigned Sleep Provider 12/27/20 3 Angella Weeks PA [address] [place], [place] [address] Physician Director Of Food And Nutrition Urology 03/03/21 Wilbert Baltazar DO [address] [place] [address] Assigned PCP 03/07/21 Angella Weeks PA [address] [place], [place] [address] Assigned Surgical Provider 03/14/2110/07/22 Amy Gentile MD [address] [place] [address] 101 [place] [address] Assigned Endocrinology Provider 10/09/21 04/20/23 Sudheer Levy DO [address] [facility] 106 [place] [address] Assigned Sleep Provider 05/30/23 documented as of this encounter
--- OUTSIDE RECORDS SUMMARY | 2023-10-17 21:50 | XMS_ITS | Encounter Summary ---
Author Organization [place] Address [address] [place] [address] Care Team Providers Care Forge Tender Name Role Phone Doctor, None Unavailable Unavailable Wilbert Baltazar DO Primary Care Provider Jacinta Villegas MD Unavailable [phone] Sudheer Levy DO Unavailable [phone] Angella Weeks Unavailable [phone] Wilbert Baltazar DO Unavailable [phone] Angella Weeks Unavailable Amy Gentile MD Unavailable [phone] Sudheer Levy DO Unavailable [phone] Encounter Details Date Type Department Care Team (Late st Contact Info) Description [facility] [address] [facility] [address] [place] [address] Social History Tobacco Use Types Packs/Day Years [...] have Coronavirus / COVID-19? No / Unsure 05/31/2020 2:46 PM CDT documented as of this encounter Plan of Treatment Not on file documented as of this encounter Visit Diagnoses Not on filedocumented in this encounter Additional Health Concerns Infection Onset Date Last Indicated Resolved Time Rule Out COVID-19 05/31/2020 05/31/2020 05/31/2020 4:59 PM CDT COVID-19 05/31/2020 05/31/2020 06/21/2020 11:3 9 PM CDT Rule Out COVID-19 10/21/2020 10/21/2020 10/22/2020 5:50 PM CDT Rule Out COVID-19 08/31/2021 08/31/2021 08/31/2021 6:10 PM CDT COVID-19 08/31/2021 08/31/2021 09/21/2021 11:3 9 PM CDT documented as of this encounter Care Teams Forge Tender Relationship Specialty Start Date End Date Wilbert Baltazar DO [address] [address] PCP - General 07/06/16 DoctorAny MD 03/25/13 Jacinta Villegas MD [address] [facility] 96 [place], [place] [address] Assigned PCP 07/22/20 03/06/21 Sudheer Levy DO [address] [place], [place] [address] Assigned Sleep Provider 12/27/20 3 Angella Weeks PA [address] [place] [place], [place] [address] Physician Director Of Guidance Urology 03/03/21 Wilbert Baltazar DO [address] [place] [place] [address] Assigned PCP 03/07/21 Angella Weeks PA [address] [place] [place] [address] Assigned Surgical Provider 03/14/2110/07/22 Amy Gentile MD [address] [place] [address] 101 [place] [address] Assigned Endocrinology Provider 10/09/21 04/20/23 Sudheer Levy DO [address] [place] [place] [address] Assigned Sleep Provider 05/30/23 documented as of this encounter
--- NOTE | 2023-10-18 00:09 | ED.GENADULT ---
HPI - General Adult General Date Seen: 10/17/23 Chief complaint: Abdominal Pain Stated complaint: possible hernia Time Seen by Provider: 10/17/23 21:13 History of Present Illness HPI narrative: This is a pleasant generally healthy 37-year-old male presenting to the ER this evening with his fiancee for evaluation of a painful periumbilical home. He has no history of any other health problems or previous abdominal surgeries. He has been a bit constipated lately and yesterday while straining on the toilet pass a BM he felt at noticed a small lump roughly an HR to incise just above his belly button. It was uncomfortable. He was able to ?pop it back in? by pressing on it with his index finger. Since then he has noticed the bump is reoccurred whenever he tries to get up or move. He is always able to ?pop it back in? by pressing with his finger. The lump is not present when he lays back and rests. No other symptoms. No generalized abdominal pain. No vomiting. No diarrhea. He is not had much stool today with has been passing normal amounts of gas. Related Data Home Medications ?Medication ?Instructions ?Recorded ?Confirmed bupropion HCl PO 10/04/23 Previous Rx's ?Medication ?Instructions ?Recorded omeprazole 40 mg capsule,delayed 40 mg PO DAILY #30 caps 10/04/23 release sucralfate 1 gram tablet (Carafate) 1 g PO TID PRN #30 tabs 10/04/23 Allergies Allergy/AdvReac Type Severity Reaction Status Date / Time No Known Drug Allergies Allergy Verified 10/17/23 20:45 PFSH PFSH Social History Smoking Status: Never smoker Second hand tobacco smoke exposure: No How often do you have a drink containing alcohol: never How often do you have six or more drinks on one occasion: Never AUDIT-C Alcohol total score: 0 Non-prescribed substance use: denies use service: No Exam Narrative: Exam Narrative: Constitutional: Appears well-developed and well-nourished. Alert. Conversant. Non toxic. HENT: Head: Atraumatic. Nose: Nose normal. Mouth/Throat: Oral mucosa is clear and moist. no trismus. Eyes: Conjunctivae normal. EOM normal. Pupils equal, round, and reactive to light. No scleral icterus. Neck: Normal range of motion. Neck supple. No tracheal deviation present. Cardiovascular: Normal rate, regular rhythm. No gallop. No friction rub. No murmur heard. Pulmonary/Chest: Effort normal. No stridor. No respiratory distress. No wheezes. No rales. No rhonchi . Abdominal: Soft. Bowel sounds normal. No distension. When supine there is no palpable mass. I think I can feel a small hernia defect in the midline just superior to the umbilicus. When the patient stands up he has does develop a 2-3 cm supra umbilical mass suggestive for an umbilical hernia. It is easily reduced by the patient and is gone when he lays back down.. No other tenderness. No rebound. No guarding. Musculoskeletal: RUE: Normal range of motion. No tenderness. No deformity LUE: Normal range of motion. No tenderness. No deformity RLE: Normal range of motion. No edema. No tenderness. No deformity LLE: Normal range of motion. No edema. No tenderness. No deformity Neurological: Alert and oriented to person, place, and time. Normal strength. CN II-VII intact. No sensory deficit. GCS eye subscore is 4. GCS verbal subscore is 5. GCS motor subscore is 6. Normal coordination Skin: Skin is warm and dry. No rash noted. No pallor. Normal capillary refill. Psychiatric: Normal mood. Normal affect. Const: Vital Signs, click to edit/add: Vital Signs - 24 hr 10/17/23 20:41 Temperature 98.4 F Pulse Rate [Pulse Oximeter] 71 Respiratory Rate 18 Blood Pressure [facility]] 130/80 Pulse Oximetry 97 Oxygen Delivery Me thod Room Air Course Vital Signs Vital signs: Initial Vital Signs Temperature 98.4 F 10/17/23 20:41 Temperature Source Temporal Artery Scan 10/17/23 20:41 Pulse Rate 71 10/17/23 20:41 Respiratory Rate 18 10/17/23 20:41 Blood Pressure 130/80 10/17/23 20:41 Blood Pressure Mean 96 10/17/23 20:41 Blood Pressure Position Sitting 10/17/23 20:41 Pulse Oximetry 97 10/17/23 20:41 Oxygen Delivery Method Room Air 10/17/23 20:41 Vital Signs Temperature 98.4 F 10/17/23 20:41 Pulse Rate 71 10/17/23 20:41 Respiratory Rate 18 10/17/23 20:41 Blood Pressure 130/80 10/17/23 20:41 Pulse Oximetry 97 10/17/23 20:41 Oxygen Delivery Method Room Air 10/17/23 20:41 Temperature 98.4 F 10/17/23 20:41 Pulse Rate 71 10/17/23 20:41 Respiratory Rate 18 10/17/23 20:41 Blood Pressure 130/80 10/17/23 20:41 Pulse Oximetry 97 10/17/23 20:41 Oxygen Delivery Method Room Air 10/17/23 20:41 Medical Decision Making MDM Narrative Medical decision making narrative: Very pleasant generally healthy 37-year-old male presenting the ER today because he developed an intermittent suprapubic mildly painful lump yesterday. Clinical exam and history are suggestive for an umbilical hernia. This appears to be a sliding hernia. No evidence for incarceration, strangulation, obstruction, or other surgical complication. Discussed in detail with the patient and his fiancee. They are comfortable with plan for outpatient management and follow-up with surgery. They would like to follow-up with surgery here in [place], however they are not sure that the [place] surgeons are in network. They will contact their insurance company tomorrow. If not able to see the surgeons here [place] they will follow-up with her primary care provider who is through the [facility] system in the [facility] and arrange a surgical consultation through their doctor's office Urinalysis obtained at triage it is normal. He is not having any urinary symptoms. At this point I do not he needs labs, CT imaging, or x-rays. Precautions for return to the ER reviewed in detail. Questions answered Lab Data Labs: Lab Results 10/17/23 Range/Units 20:53 Urine Color Yellow (Yellow) Urine Appearance Clear (Clear) Urine pH 5.5 (5.0-8.5) Ur Specific [place] 1.015 (1.000-1.030) Urine Protein Negative (Negative) Urine Glucose (UA) Negative (Negative) Urine Ketones Negative (Negative) Urine Blood Negative (Negative) Urine Nitrite Negative (Negative) Urine Bilirubin Negative (Negative) Urine Urobilinogen 0.2 (0.2-1.0) Ur Leukocyte Esterase Negative (Negative) Urine RBC 0-2 (0-2) Urine WBC 0-2 (0-5) Ur Squamous Epith Cells None (None-Few) Urine Bacteria None (None) Discharge Plan Discharge Clinical Impression: Hernia, umbilical Patient Disposition: Home, Self-Care Condition: Stable Instructions: Umbilical Hernia (ED) Additional Instructions: As we discussed, please follow-up with your regular doctor at [place] or with the [facility] surgeons. If you want to follow-up with the surgeons here in [place] you can call [phone] schedule an ER follow-up appointment to recheck for your umbilical hernia Please come back to the ER right away if you have worsening symptoms such as severe pain, or if your hernia bulges out any or not able to ?pop it? back in. Or if you developed diffuse pain, bloating, nausea, or vomiting. Prescriptions: No Action bupropion HCl [Wellbutrin] PO omeprazole 40 mg capsule,delayed release(DR/EC) 40 mg PO DAILY Qty: 30 2RF sucralfate [Carafate] 1 gram tablet 1 g PO TID PRNQty: 30 0RF Follow Up/Referrals: Provider,Not a Local [Primary Care Provider] - Stand Alone Forms: [facility] Info Instructions
== END 2023-10-17 21:52 | disposition home or self-care (01) ==
LOC: ED 21:47
PROVIDERS: Emergency Provider Emergency Medicine
DX: K42.9 Umbilical hernia without obstruction or gangrene (principal)
CPT/HCPCS: 81001; 99282; 99283

== ENCOUNTER 2024-06-17 13:01 | Emergency (ER) | payer OTHER, SELFPAY ==
--- OUTSIDE RECORDS SUMMARY | 2024-06-17 13:04 | XMS_ITS | Encounter Summary ---
Author Organization [facility] Address [address] [place] [address] Care Team Providers Care Cook Sauce Name Role Phone Doctor, None Unavailable Unavailable Wilbert Baltazar DO Primary Care Provider Sudheer Levy DO Unavailable Angella eWeks Unavailable [phone] Wilbert Baltazar DO Unavailable Angella Weeks Unavailable [phone] Amy Gentile MD Unavailable Sudheer Levy DO Unavailable Tangela Dupree MD Unavailable Reason for Visit * Reason Onset Date Comments MyChart Communication 09/21/2021 Thyroid la bs follow-up Encounter Details Date Type Department Care Team (Late st Contact Info) Description 09/21/2021 MyC Medical Advice [facility] [address], [address] [place] [address] Wilbert Baltazar DO [address] [place] [address] MyChart Communication (Thyroid labs follow... Social History Tobacco Use Types Packs/Day Years Used Date Smoking Tobacco: Never Smokeless Tobacco: Never Alcohol Use Standard Drinks/Week Comments Yes 0 (1 standard drink = 0.6 oz pur e alcohol) occassional PHQ-2 Answer Date Recorded PHQ-2 Score 2 04/05/2021 Sex and Gender Information Value Date Recorded Sex Assigned at Not on file Legal Sex Male 3:27 AM SCAFFOLD BUILDER Gender Identity Not on file Sexual Orientation Not on file COVID-19 Exposure Response Date Recorded In the last 10 days, have yo u been in contact with someone who was confirmed or suspected to have Coronavirus/COVID-19? No / Unsure 09/23/2021 2:27 PM CDT documented as of this encounter Miscellaneous Notes * Telephone Encounter - Helen Johsnon RN - 09/28/2021 7:25 AM CDT DD, [...] documented as of this encounter Care Teams Cook Sauce Relationship Specialty Start Date End Date Wilbert Baltazar DO [address] [facility] [address] [place] [address] PCP - General 07/06/16 DoctorAny MD 03/25/13 Sudheer Levy DO [address] [place], [place] [address] Assigned Sleep Provider 12/27/20 3 Angella Weeks PA [address] [place], [place] [id number] Physician Military Aircraft Designer Urology 03/03/21 Wilbert Baltazar DO [address] [facility] [address] [place] [address] Assigned PCP 03/07/21 Angella Weeks PA [address] [place] [address] Assigned Surgical Provider 03/14/2110/07/22 Amy Gentile MD [address] [place], [place] [address] Assigned Endocrinology Provider 10/09/21 04/20/23 Sudheer Levy DO [address] [place], [place] [address] Assigned Sleep Provider 05/30/23 Tangela Dupree MD [address] [place], [place] [address] Assigned Surgical Provider 11/29/23 documented as of this encounter
--- OUTSIDE RECORDS SUMMARY | 2024-06-17 13:04 | XMS_ITS | Encounter Summary ---
Author Organization [facility] Address [address] [place] [address] Care Team Providers Care Lip And Gate Builder Name Role Phone Doctor, None Unavailable Unavailable Wilbert Baltazar DO Primary Care Provider Sudheer Levy DO Unavailable Angella Weeks Unavailable Wilbert Baltazar DO Unavailable Angella Weeks Unavailable Amy Gentile MD Unavailable [phone] Sudheer Levy DO Unavailable [phone] Tangela Dupree MD Unavailable Encounter Details Date Type Department Care Team (Late st Contact Info) Description 06/29/2021 Orders Only [facility] Centralized Scheduling Replaced by [facility] [place] [address] Ruddy Kaiser MD [address] [place] [address] Encounter for laboratory testing for COVID-19 virus [...] on file 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 Additional information about this Emergency [...] COVID-19. This test was validated by the [facility] Diseases Diagnostic [facility]. This laboratory is certified under the Clinical Laboratory Improvement Amendments of 1988 (CLIA-88) as qualified to perform high complexity laboratory testing. us Ruddy Kaiser MD LAB - MICRO GENERAL ORDERABLES F inal Result [facility] Inf. Diseases Diag. Lab [address] [facility], [address] [place] [address], [facility] [phone] documented in this encounter Visit Diagnoses Diagnosis Encounter for laboratory testing for COVID-19 virus documented in this encounter Additional Health Concerns Infection Onset Date Last Indicated Resolved Time Rule Out COVID-19 08/31/2021 08/31/2021 08/31/2021 6:10 PM CDT COVID-19 08/31/2021 08/31/2021 09/21/2021 11:3 9 PM CDT documented as of this encounter Care Teams Lip And Gate Builder Relationship Specialty Start Date End Date Wilbert Baltazar DO [address] [place] [address] PCP - General 07/06/16 Doctor, Any, 03/25/13 Sudheer Levy DO [address] [place], [place] [address] Assigned Sleep Provider 12/27/20 3 Angella Weeks PA [address] [place], [place] [address] Physician Technical Delivery Manager Urology 03/03/21 Wilbert Baltazar DO [address] [place] [address] Assigned PCP 03/07/21 Angella Weeks PA [address] [place] [address] Assigned Surgical Provider 03/14/2110/07/22 Amy Gentile MD [address] [place], [place] [address] Assigned Endocrinology Provider 10/09/21 04/20/23 Sudheer Levy DO [address] [place], [place] [address] Assigned Sleep Provider 05/30/23 Tangela Dupree MD [address] [place] [address] Assigned Surgical Provider 11/29/23 documented as of this encounter
--- OUTSIDE RECORDS SUMMARY | 2024-06-17 13:04 | XMS_ITS | Encounter Summary ---
Author Organization [facility] Address [address] [place] [address] Care Team Providers Care Cashier Clerk Name Role Phone Doctor, None Unavailable Unavailable Wilbert Baltazar DO Primary Care Provider Jacinta Villegas MD Unavailable [phone] Sudheer Levy DO Unavailable Angella Weeks Unavailable Wilbert Baltazar DO Unavailable Angella Weeks Unavailable Amy Gentile MD Unavailable Sudheer Levy DO Unavailable Tangela Dupree MD Unavailable Encounter Details Date Type Department Care Team (Late st Contact Info) Description 06/18/2020 [facility] Laurie Cisneros MD [address] [facility] [place] [id number] Social History Tobacco Use Types Packs/Day Years Used Date Smoking Tobacco: Never Smokeless Tobacco: Never Alcohol Use Standard Drinks/Week Comments Yes 0 (1 standard drink = 0.6 oz pur e alcohol) occassional PHQ-2 Answer Date Recorded PHQ-2 Score 0 05/14/2020 Sex and Gender Information Value Date Recorded Sex Assigned at Not on file 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 Gender Identity Not on file Sexual Orientation [...] documented as of this encounter Care Teams Cashier Clerk Relationship Specialty Start Date End Date Wilbert Baltazar DO [address] [facility] [address] [place], [place] [address] PCP - General 07/06/16 DoctorAny MD 03/25/13 Jacinta Villegas MD [address] [facility] [address] [place], [place] [id number] Assigned PCP 07/22/20 03/06/21 Sudheer Levy DO [address] [place], [place] [address] Assigned Sleep Provider 12/27/20 3 Angella Weeks PA [address] [place], [place] [address] Physician Electronic Funds Transfer Coordinator Urology 03/03/21 Wilbert Baltazar DO [address] [facility] [address] [place] [address] Assigned PCP 03/07/21 Angella Weeks PA [address] [place] [address] Assigned Surgical Provider 03/14/2110/07/22 Amy Gentile MD [address] [place], [place] [address] Assigned Endocrinology Provider 10/09/21 04/20/23 Sudheer Levy DO [address] [place], [place] [address] Assigned Sleep Provider 05/30/23 Tangela Dupree MD [address] [place], [place] [address] Assigned Surgical Provider 11/29/23 documented as of this encounter
--- OUTSIDE RECORDS SUMMARY | 2024-06-17 13:04 | XMS_ITS | Encounter Summary ---
Author Organization [facility] Address [address] [place] [address] Care Team Providers Care Technology Lab Teacher Name Role Phone Doctor, None Unavailable Unavailable Wilbert Baltazar DO Primary Care Provider Sudheer Levy DO Unavailable Angella Weeks Unavailable [phone] Wilbert Baltazar DO Unavailable Angella Weeks Unavailable Amy Gentile MD Unavailable Sudheer Levy DO Unavailable Tangela Dupree MD Unavailable Encounter Details Date Type Department Care Team (Late st Contact Info) Description 03/30/2021 [facility] Medical Advice [facility] [address] [phone] Kellen Granda CMA Social History Tobacco Use Types Packs/Day Years Used Date Smoking Tobacco: Never Smokeless Tobacco: Never Alcohol Use Standard Drinks/Week Comments Yes 0 (1 standard drink = 0.6 oz pur e alcohol) occassional PHQ-2 Answer Date Recorded PHQ-2 Score 2 03/03/2021 Sex and Gender Information Value Date Recorded Sex Assigned at Not on file 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 No / Unsure 03/03/2021 10:23 AM SPLICER MACHINE OPERATOR documented as of this encounter Plan of Treatment Not on file documented as of this encounter Visit Diagnoses Not on filedocumented in this encounter Additional Health Concerns Infection Onset Date Last Indicated Resolved Time Rule Out COVID-19 08/31/2021 08/31/2021 08/31/2021 6:10 PM CDT COVID-19 08/31/2021 08/31/2021 09/21/2021 11:3 9 PM CDT documented as of this encounter Care Teams Technology Lab Teacher Relationship Specialty Start Date End Date Wilbert Baltazar DO [address] [place] [address] PCP - General 07/06/16 DoctorAny MD 03/25/13 Sudheer Levy DO [address] [place], [place] [address] Assigned Sleep Provider 12/27/20 3 Angella Weeks PA [address] [place], [place] [address] Physician Scheme Technician Urology 03/03/21 Wilbert Baltazar DO [address] [place] [address] Assigned PCP 03/07/21 Angella Weeks PA [address] [place] [address] Assigned Surgical Provider 03/14/2110/07/22 Amy Gentile MD [address] [place], [place] [address] Assigned Endocrinology Provider 10/09/21 04/20/23 Sudheer Levy DO [address] [place], [place] [address] Assigned Sleep Provider 05/30/23 Tangela Dupree MD [address] [place] [address] Assigned Surgical Provider 11/29/23 documented as of this encounter
--- OUTSIDE RECORDS SUMMARY | 2024-06-17 13:04 | XMS_ITS | Encounter Summary ---
Author Organization [facility] Address [address] [place] [address] Care Team Providers Care Senior Python Developer Name Role Phone Doctor, None Unavailable Unavailable Wilbert Baltazar DO Primary Care Provider Sudheer Levy DO Unavailable Angella Weeks Unavailable [phone] Wilbert Baltazar DO Unavailable Angella Weeks Unavailable [phone] Amy Gentile MD Unavailable Sudheer Levy DO Unavailable Tangela Dupree MD Unavailable Encounter Details Date Type Department Care Team (Late st Contact Info) Description 09/09/2021 [facility] Medical Advice [facility] [address], [address] [place] [phone] Wilbert Baltazar DO [address] [facility] [address] [place] [address] Social History Tobacco Use Types Packs/Day Years Used Date Smoking Tobacco: Never Smokeless Tobacco: Never Alcohol Use Standard Drinks/Week Comments Yes 0 (1 standard drink = 0.6 oz pur e alcohol) occassional PHQ-2 Answer Date Recorded PHQ-2 Score 2 04/05/2021 Sex and Gender Information Value Date Recorded Sex Assigned at Not on file 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 Gender Identity Not on file Sexual Orientation [...] documented as of this encounter Care Teams Senior Python Developer Relationship Specialty Start Date End Date Wilbert Baltazar DO [address] [place] [address] PCP - General 07/06/16 DoctorAny MD 03/25/13 Sudheer Levy DO [address] [place], [place] [address] Assigned Sleep Provider 12/27/20 3 Angella Weeks PA [address] [place], [place] [address] Physician Ribber Urology 03/03/21 Wilbert Baltazar DO [address] [place] [address] Assigned PCP 03/07/21 Angella Weeks PA [address] [place] [address] Assigned Surgical Provider 03/14/2110/07/22 Amy Gentile MD [address] [place], [place] [address] Assigned Endocrinology Provider 10/09/21 04/20/23 Sudheer Levy DO [address] [place], [place] [address] Assigned Sleep Provider 05/30/23 Tangela Dupree MD [address] [place], [place] [address] Assigned Surgical Provider 11/29/23 documented as of this encounter
--- OUTSIDE RECORDS SUMMARY | 2024-06-17 13:04 | XMS_ITS | Encounter Summary ---
Author Organization [facility] Address [address] [place] [address] Care Team Providers Care Allopathic Doctor Name Role Phone Doctor, None Unavailable Unavailable Wilbert Baltazar DO Primary Care Provider Sudheer Levy DO Unavailable Angella Weeks Unavailable [phone] Wilbert Baltazar DO Unavailable Angella Weeks Unavailable Amy Gentiel MD Unavailable [phone] Sudheer Levy DO Unavailable [phone] Tangela Dupree MD Unavailable Encounter Details Date Type Department Care Team (Late st Contact Info) Description 04/06/2021 [facility] [address] [address] [facility] Social History Tobacco Use Types Packs/Day Years Used Date Smoking Tobacco: Never Smokeless Tobacco: Never Alcohol Use Standard Drinks/Week Comments Yes 0 (1 standard drink = 0.6 oz pur e alcohol) occassional PHQ-2 Answer Date Recorded PHQ-2 Score 2 04/05/2021 Sex and Gender Information Value Date Recorded Sex Assigned at Not on file 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 Gender Identity Not on file Sexual Orientation [...] documented as of this encounter Care Teams Allopathic Doctor Relationship Specialty Start Date End Date Wilbert Baltazar DO [email or web address] [place] [address] PCP - General 07/06/16 DoctorAny MD 03/25/13 Sudheer Levy DO [address] [place] [address] Assigned Sleep Provider 12/27/20 3 Angella Weeks PA [address] [place], [place] [address] Physician Media Technician Urology 03/03/21 Wilbert Baltazar DO [email or web address] [place] [address] Assigned PCP 03/07/21 Angella Weeks PA [address] [place] [address] Assigned Surgical Provider 03/14/2110/07/22 Amy Gentile MD [address] [place] [address] Assigned Endocrinology Provider 10/09/21 04/20/23 Sudheer Levy DO [address] [facility] [address] [place], [place] [address] Assigned Sleep Provider 05/30/23 Tangela Dupree MD [address] [place], [place] [address] Assigned Surgical Provider 11/29/23 documented as of this encounter
--- OUTSIDE RECORDS SUMMARY | 2024-06-17 13:04 | XMS_ITS | Encounter Summary ---
Author Organization [place] Address [address] [place] [address] Care Team Providers Care Private Pilot Name Role Phone Doctor, None Unavailable Unavailable Wilbert Baltazar DO Primary Care Provider Angella Weeks Unavailable Wilbert Baltazar DO Unavailable [phone] Sudheer Levy DO Unavailable [phone] Tangela Dupree MD Unavailable Encounter Details Date Type Department Care Team (Late st Contact Info) Description 11/27/2023 MyC Medical Advice [facility] [place] [address] [place] [address] Tangela Dupree MD [facility] [place], [place] [address] Social History Tobacco Use Types Packs/Day Years Used Date Smoking Tobacco: Never Passive Smoke Exposure: Past Smokeless Tobacco: Never Alcohol Use Standard Drinks/Week Comments Yes 0 (1 standard drink = 0.6 oz pur e alcohol) occas PHQ-2 Answer Date Recorded PHQ-2 Score 2 06/21/2023 Adolescent Education Answer Date Record ed Getting School Help Needed Not on file 11/04 Interpersonal Safety Answer Date Record ed Do you feel physically and e motionally safe where you currently live? Patient unable to answer 11/20/2023 Within the past 12 months, h ave you been hit, slapped, kicked or otherwise physically hurt by someone? Patient unable to answer 11/20/2023 Within the past 12 months, h ave you been humiliated or emotionally abused in other ways by your partner or ex-partner? 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 Author MYC ECC SURG ENROLL Care Plan MyC ECC SURG ENROLL No Lonny Stanley documented as of this encounter Visit Diagnoses Not on filedocumented in this encounter Additional Health Concerns Active Problems Noted Date Diagnosed Date MyC ECC SURG ENROLL 11/13/2023 Assessment Noted Time PHQ-9 Depression Total Score: 7 10/05/19 22 5:49 PM CDT documented as of this encounter Care Teams Private Pilot Relationship Specialty Start Date End Date Wilbert Baltazar DO [address] [place] [address] PCP - General 07/06/16 DoctorAny MD 03/25/13 Angella Weeks PA [address] [place] [address] Physician Student Advisor Urology 03/03/21 Wilbert Baltazar DO [address] [place] [address] Assigned PCP 03/07/21 Sudheer Levy DO [address] [place] [address] Assigned Sleep Provider 05/30/23 Tangela Dupree MD [address] [place] [address] Assigned Surgical Provider 11/29/23 documented as of this encounter
--- OUTSIDE RECORDS SUMMARY | 2024-06-17 13:04 | XMS_ITS | Encounter Summary ---
Author Organization [place] Address [address] [place] [address]. [place] [address] Care Team Providers Care Toe Former Stitchdowns Name Role Phone Doctor, None Unavailable Unavailable Wilbert Baltazar DO Primary Care Provider Angella Weeks Unavailable Wilbert Baltazar DO Unavailable Sudheer Levy DO Unavailable Tangela Dupree MD Unavailable Reason for Visit * Reason Comments Med Change Request Encounter Details Date Type Department Care Team (Late st Contact Info) Description 06/03/2024 [facility] [address] [facility], [address] [place] [address] Wilbert Baltazar DO [address] [facility] [address] [place], [place] [id number] Med Change Request Social History Tobacco Use Types Packs/Day [...] on file 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 Author MYC ECC SURG ENROLL Care Plan MyC ECC SURG ENROLL Lonny Cerna documented as of this encounter Visit Diagnoses Diagnosis Anxiety Anxiety state, unspecified documented in this encounter Additional Health Concerns Active Problems Noted Date Diagnosed Date MyC ECC SURG ENROLL 11/13/2023 Assessment Noted Time PHQ-9 Depression Total Score: 7 10/05/19 22 5:49 PM CDT documented as of this encounter Care Teams Toe Former Stitchdowns Relationship Specialty Start Date End Date Wilbert Baltazar DO [address] [place] [address] PCP - General 07/06/16 Any Chavez MD 03/25/13 Angella Weeks PA [address] [place] [address] Physician Enrollment Management Director Urology 03/03/21 Wilbert Baltazar DO [address] [place] [address] Assigned PCP 03/07/21 Sudheer Levy DO [address] [place] [address] Assigned Sleep Provider 05/30/23 Tangela Dupree MD [address] [place] [address] Assigned Surgical Provider 11/29/23 documented as of this encounter
--- OUTSIDE RECORDS SUMMARY | 2024-06-17 13:04 | XMS_ITS | Encounter Summary ---
Author Organization [place] Address [address] [place] [address]. [place] [address] Care Team Providers Care Employment Security Officer Name Role Phone Doctor, None Unavailable Unavailable Wilbert Baltazar DO Primary Care Provider Jacinta Villegas MD Unavailable [phone] Sudheer Levy DO Unavailable Angella Weeks Unavailable Wilbert Baltzaar DO Unavailable Angella Weeks Unavailable Amy Gentile MD Unavailable [phone] Sudheer Levy DO Unavailable [phone] Tangela Dupree MD Unavailable [phone] Encounter Details Date Type Department Care Team (Late st Contact Info) Description 12/23/2020 [facility] Medical Advice [facility] [address], [address] [place] [address] Laura Garcia Social History Tobacco Use Types Packs/Day Years Used Date Smoking Tobacco: Never Smokeless Tobacco: Never Alcohol Use Standard Drinks/Week Comments Yes 0 (1 standard drink = 0.6 oz pur e alcohol) occassional PHQ-2 Answer Date Recorded PHQ-2 Score 0 05/14/2020 Sex and Gender Information Value Date Recorded Sex Assigned at Not on file 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 Gender Identity Not on file Sexual Orientation [...] documented as of this encounter Care Teams Employment Security Officer Relationship Specialty Start Date End Date Wilbert Baltazar DO [address] [place] [address] PCP - General 07/06/16 Doctor, Any, 03/25/13 Jacinta Villegas MD [address] [place] [address] 96 [place], [place] [id number] Assigned PCP 07/22/20 03/06/21 Sudheer Levy DO [address] [place], [place] [address] Assigned Sleep Provider 12/27/20 3 Angella Weeks PA [address] [place], [place] [address] Physician Plug Overwrap Machine Tender Urology 03/03/21 Wilbert Baltazar DO [address] [place] [address] Assigned PCP 03/07/21 Angella Weeks PA [address] [place], [place] [address] Assigned Surgical Provider 03/14/2110/07/22 Amy Gentile MD [address] [address] Assigned Endocrinology Provider 10/09/21 04/20/23 Sudheer Levy DO [address] [address] Assigned Sleep Provider 05/30/23 Tangela Dupree MD [address] [place] [address] Assigned Surgical Provider 11/29/23 documented as of this encounter
--- OUTSIDE RECORDS SUMMARY | 2024-06-17 13:04 | XMS_ITS | Encounter Summary ---
Author Organization [place] Address [address] [place] [address] Care Team Providers Care Mallet And Die Cutter Name Role Phone Doctor, None Unavailable Unavailable Wilbert Baltazar DO Primary Care Provider Jacinta Villegas MD Unavailable [phone] Sudheer Levy DO Unavailable [phone] Angella Weeks Unavailable [phone] Wilbert Baltazar DO Unavailable Angella Weeks Unavailable Amy Gentile MD Unavailable [phone] Sudheer Levy DO Unavailable [phone] Tangela Dupree MD Unavailable Encounter Details Date Type Department Care Team (Late st Contact Info) Description 09/24/2020 [facility] [address] [id number] Cleo Montalvo Social History Tobacco Use Types Packs/Day Years Used Date Smoking Tobacco: Never Smokeless Tobacco: Never Alcohol Use Standard Drinks/Week Comments Yes 0 (1 standard drink = 0.6 oz pur e alcohol) occassional PHQ-2 Answer Date Recorded PHQ-2 Score 0 05/14/2020 Sex and Gender Information Value Date Recorded Sex Assigned at Not on file 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 Gender Identity Not on file Sexual Orientation [...] documented as of this encounter Care Teams Mallet And Die Cutter Relationship Specialty Start Date End Date Wilbert Baltazar DO [address] [place] [address] PCP - General 07/06/16 DoctorAny MD 03/25/13 Jacinta Villegas MD [address] [place] [address] 96 [place] [address] Assigned PCP 07/22/20 03/06/21 Sudheer Levy DO [address] [place] [address] Assigned Sleep Provider 12/27/20 3 Angella Weeks PA [address] [place] [address] Physician Marriage Counselor Urology 03/03/21 Wilbert Baltazar DO [address] [place] [address] Assigned PCP 03/07/21 Angella Weeks PA [address] [place] [address] Assigned Surgical Provider 03/14/2110/07/22 Amy Gentile MD [address] [place], [place] [address] Assigned Endocrinology Provider 10/09/21 04/20/23 Sudheer Levy DO [address] [address] Assigned Sleep Provider 05/30/23 Tangela Dupree MD [address] [place], [place] [address] Assigned Surgical Provider 11/29/23 documented as of this encounter
--- OUTSIDE RECORDS SUMMARY | 2024-06-17 13:04 | XMS_ITS | Encounter Summary ---
Author Organization [place] Address [address] [place] [address]. [place] [address] Care Team Providers Care Purchasing Manager/Sales Name Role Phone Doctor, None Unavailable Unavailable Wilbert Baltazar DO Primary Care Provider Angella Weeks Unavailable Wilbert Baltazar DO Unavailable Sudheer Levy DO Unavailable Tangela Dupree MD Unavailable Reason for Visit * Reason Comments Medication Refill Encounter Details Date Type Department Care Team (Late st Contact Info) Description 06/02/2024 Refill [facility] [place] [address] [facility], [address] [place] [address] Wilbert Baltazar DO [address] [facility] [address] [place] [address] Medication Refill Social History Tobacco Use Types Packs/Day Years [...] on file 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 Gender Identity Not on file Sexual Orientation [...] documented as of this encounter Care Teams Purchasing Manager/Sales Relationship Specialty Start Date End Date Wilbert Baltazar DO [address] [place] [address] PCP - General 07/06/16 Any Chavez MD 03/25/13 Angella Weeks PA [address] [place] [address] Physician Chief Yeoman Urology 03/03/21 Wilbert Baltazar DO [address] [place] [address] Assigned PCP 03/07/21 Sudheer Levy DO [address] [place] [address] Assigned Sleep Provider 05/30/23 Tangela Dupree MD [address] [place] [address] Assigned Surgical Provider 11/29/23 documented as of this encounter
--- OUTSIDE RECORDS SUMMARY | 2024-06-17 13:05 | XMS_ITS | Encounter Summary ---
Author Organization [place] Address [address] [place] [address] Care Team Providers Care Scrum Coach Name Role Phone Doctor, None Unavailable Unavailable Wilbert Baltazar DO Primary Care Provider Jacinta Villegas MD Unavailable [phone] Sudheer Levy DO Unavailable [phone] Angella Weeks Unavailable [phone] Wilbert Baltazar DO Unavailable Angella Weeks Unavailable Amy Gentile MD Unavailable [phone] Sudheer Levy DO Unavailable Tangela Dupree MD Unavailable Encounter Details Date Type Department Care Team (Late st Contact Info) Description 12/15/2020 MyC Medical Advice [facility] [address] [address] Kellen Granda CMA Social History Tobacco Use Types Packs/Day Years Used Date Smoking Tobacco: Never Smokeless Tobacco: Never Alcohol Use Standard Drinks/Week Comments Yes 0 (1 standard drink = 0.6 oz pur e alcohol) occassional PHQ-2 Answer Date Recorded PHQ-2 Score 0 05/14/2020 Sex and Gender Information Value Date Recorded Sex Assigned at Not on file 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 Gender Identity Not on file Sexual Orientation [...] documented as of this encounter Care Teams Scrum Coach Relationship Specialty Start Date End Date Wilbert Baltazar DO [address] [facility] [address] [place] [address] PCP - General 07/06/16 Doctor, Any, 03/25/13 Jacinta Villegas MD [address] [place] [id number] Assigned PCP 07/22/20 03/06/21 Sudheer Levy DO [address] [place] [address] Assigned Sleep Provider 12/27/20 3 Angella Weeks PA [address] [place] [address] Physician Film Flat Inspector Urology 03/03/21 Wilbert Baltazar DO [address] [address] Assigned PCP 03/07/21 Angella Weeks PA [address] [place] [address] Assigned Surgical Provider 03/14/2110/07/22 Amy Gentile MD [address] [place] [address] Assigned Endocrinology Provider 10/09/21 04/20/23 Sudheer Levy DO [address] [place], [place] [address] Assigned Sleep Provider 05/30/23 Tangela Dupree MD [address] [place] [address] Assigned Surgical Provider 11/29/23 documented as of this encounter
--- OUTSIDE RECORDS SUMMARY | 2024-06-17 13:05 | XMS_ITS | Encounter Summary ---
Author Organization [place] Address [address] [place] [address] Care Team Providers Care Farm Forestry And Garden Workers Name Role Phone Doctor, None Unavailable Unavailable Wilbert Baltazar DO Primary Care Provider Jacinta Villegas MD Unavailable [phone] Sudheer Levy DO Unavailable Angella Weeks Unavailable Wilbert Baltazar DO Unavailable Angella Weeks Unavailable Amy Gentile MD Unavailable Sudheer Levy DO Unavailable Tangela Dupree MD Unavailable [phone] Encounter Details Date Type Department Care Team (Late st Contact Info) Description [facility] [address] [facility] [place] [id number] Social History Tobacco Use Types Packs/Day Years Used Date Smoking Tobacco: Never Smokeless Tobacco: Never Alcohol Use Standard Drinks/Week Comments Yes 0 (1 standard drink = 0.6 oz pur e alcohol) PHQ-2 Answer Date Recorded PHQ-2 Score 0 05/14/2020 Sex and Gender Information Value Date Recorded Sex Assigned at Not on file 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 Gender Identity Not on file Sexual Orientation [...] documented as of this encounter Care Teams Farm Forestry And Garden Workers Relationship Specialty Start Date End Date Wilbert Baltazar DO [address] [address] PCP - General 07/06/16 DoctorAny MD 03/25/13 Jacinta Villegas MD [address] [address] Assigned PCP 07/22/20 03/06/21 Sudheer Levy DO [address] [place], [place] [address] Assigned Sleep Provider 12/27/20 3 Angella Weeks PA [address] [place] [address] Physician Open Hearth Worker Urology 03/03/21 Wilbert Baltazar DO [address] [facility] [address] [address] Assigned PCP 03/07/21 Angella Weeks PA [address] [place] [address] Assigned Surgical Provider 03/14/2110/07/22 Amy Gentile MD [address] [address] Assigned Endocrinology Provider 10/09/21 04/20/23 Sudheer Levy DO [address] [facility] [address] [place] [address] Assigned Sleep Provider 05/30/23 Tangela Dupree MD [address] [place] [address] Assigned Surgical Provider 11/29/23 documented as of this encounter
--- OUTSIDE RECORDS SUMMARY | 2024-06-17 13:05 | XMS_ITS | Encounter Summary ---
Author Organization [place] Address [address] [place] [address] Care Team Providers Care Light Armored Reconnaissance Officer Name Role Phone Doctor, None Unavailable Unavailable Wilbert Baltazar DO Primary Care Provider Jacinta Villegas MD Unavailable [phone] Sudheer Levy DO Unavailable Angella Weeks Unavailable [phone] Wilbert Baltazar DO Unavailable Angella Weeks Unavailable Amy Gentile MD Unavailable [phone] Sudheer Levy DO Unavailable [phone] Tangela Dupree MD Unavailable Encounter Details Date Type Department Care Team (Late st Contact Info) Description [facility]/01/2020 [facility] Laurie Cisner[facility] [address] [facility] [place] [id number] Social History Tobacco Use Types Packs/Day Years Used Date Smoking Tobacco: Never Smokeless Tobacco: Never Alcohol Use Standard Drinks/Week Comments Yes 0 (1 standard drink = 0.6 oz pur e alcohol) PHQ-2 Answer Date Recorded PHQ-2 Score 0 05/14/2020 Sex and Gender Information Value Date Recorded Sex Assigned at Not on file 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 Gender Identity Not on file Sexual Orientation [...] documented as of this encounter Care Teams Light Armored Reconnaissance Officer Relationship Specialty Start Date End Date Wilbert Baltazar DO [address] [facility] [address] [place], [place] [address] PCP - General 07/06/16 DoctorAny MD 03/25/13 Jacinta Villegas MD [address] [facility] [address] [place], [place] [address] Assigned PCP 07/22/20 03/06/21 Sudheer Levy DO [address] [place], [place] [address] Assigned Sleep Provider 12/27/20 3 Angella Weeks PA [address] [place], [place] [address] Physician Visual Merchandising Associate Urology 03/03/21 Wilbert Baltazar DO [address] [facility] [address] [place] [address] Assigned PCP 03/07/21 Angella Weeks PA [address] [place] [address] Assigned Surgical Provider 03/14/2110/07/22 Amy Gentile MD [address] [place], [place] [address] Assigned Endocrinology Provider 10/09/21 04/20/23 Sudheer Lvey DO [address] [place], [place] [address] Assigned Sleep Provider 05/30/23 Tangela Dupree MD [address] [place], [place] [address] Assigned Surgical Provider 11/29/23 documented as of this encounter
--- OUTSIDE RECORDS SUMMARY | 2024-06-17 13:05 | XMS_ITS | Encounter Summary ---
Author Organization [place] Address [address] [place] [address]. [place] [address] Care Team Providers Care Manager Equity Name Role Phone Doctor, None Unavailable Unavailable Wilbert Baltazar DO Primary Care Provider Jacinta Villegas MD Unavailable [phone] Sudheer Levy DO Unavailable [phone] Angella Weeks Unavailable Wilbert Baltazar DO Unavailable Angella Weeks Unavailable [phone] Amy Gentile MD Unavailable [phone] Sudheer Levy DO Unavailable [phone] Tangela Dupree MD Unavailable Encounter Details Date Type Department Care Team (Late st Contact Info) Description 06/15/2020 Documentation Only [facility] [address] [place] [address] Unknown, Provider Social History Tobacco Use Types [...] on file 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 Gender Identity Not on file Sexual Orientation [...] documented as of this encounter Care Teams Manager Equity Relationship Specialty Start Date End Date Wilbert Baltazar DO [address] [address] PCP - General 07/06/16 Doctor, Any, 03/25/13 Jacinta Villegas MD [address] [facility] 96 [place] [address] Assigned PCP 07/22/20 03/06/21 Sudheer eLvy DO [address] [place] [address] Assigned Sleep Provider 12/27/20 Angella Weeks PA [address] [place] [address] Physician Atmospheric Drier Tender Urology 03/03/21 Wilbert Baltazar DO [address] [facility] [address] [place], [place] [address] Assigned PCP 03/07/21 Angella Weeks PA [address] [place] [address] Assigned Surgical Provider 03/14/2110/07/22 Amy Gentile MD [address] [place] [address] Assigned Endocrinology Provider 10/09/21 04/20/23 Sudheer Levy DO [address] [place] [address] Assigned Sleep Provider 05/30/23 Tangela Dupree MD [address] [place] [address] Assigned Surgical Provider 11/29/23 documented as of this encounter
--- OUTSIDE RECORDS SUMMARY | 2024-06-17 13:05 | XMS_ITS | Clinical Summary ---
Author Organization [facility] Address [address] [place] [address] Care Team Providers Care Client Evaluator Name Role Phone Doctor, None Unavailable Unavailable Wilbert Baltazar DO Primary Care Provider Angella Weeks Unavailable [phone] Wilbert Baltazar DO Unavailable Sudheer Levy DO Unavailable Tangela Dupree MD Unavailable Allergies No known active allergies Medications cetirizine (ZYRTEC) 10 MG tablet Take 10 mg by mouth daily as needed for allergies. Active ibuprofen (ADVIL/MOTRIN) 200 MG tablet Take 200 mg by mouth every 4 hours as needed. Active loratadine (CLARITIN) 10 MG tablet Take 10 mg by mouth daily as needed. Active propranolol (INDERAL) 10 MG tabletIndicatio ns:Anxiety Take 1-2 tablets (10-20 mg) by mouth 3 times daily 30 tablet 1 06/21/19 Active Additional Information Patient taking differently:10-20 mg Oral3 TIMES DAILY PRN, Reported on 11/15/2023 omeprazole (PRILOSEC) [address] capsule Take 40 mg by mouth daily. 10/31/19 24 Active sucralfate (CARAFATE) 1 GM tablet Take 1 tablet by mouth as needed. 10/04/19 24 Active oxyCODONE (ROXICODONE) 5 MG tabletIndicatio ns:Umbilical hernia without obstruction and without gangrene Take 1-2 tablets (5-10 mg) by mouth every 4 hours as needed for moderate to severe pain. 10 tablet 11/20/19 24 Active senna-docusate (SENOKOT-S/KIP COLACE) 8.6-50 MG tabletIndicatio ns:Umbilical hernia without obstruction and without gangrene Take 1-2 tablets by mouth 2 times daily. 30 tablet 11/20/19 24 Active ondansetron (ZOFRAN ODT) 4 MG ODT tabIndications: Umbilical hernia without obstruction and without gangrene Take 1 tablet (4 mg) by mouth every 8 hours as needed for nausea. 8 tablet 11/20/19 24 Active buPROPion (WELLBUTRIN XL) 150 MG 24 hr tabletIndicatio ns:Anxiety TAKE 1 TABLET BY MOUTH EVERY DAY IN THE MORNING 90 tablet 06/04/19 25 Active buPROPion (WELLBUTRIN XL) 150 MG 24 hr tabletIndicatio ns:Anxiety TAKE 1 TABLET BY MOUTH EVERY MORNING 90 tablet 03/04/19 25 025 Discontinued buPROPion (WELLBUTRIN XL) 150 MG 24 hr tabletIndicatio ns:Anxiety TAKE 1 TABLET BY MOUTH EVERY MORNING 30 tablet 06/04/19 25 025 Discontinued Active Problems Problem Noted Date Diagnosed Date Class 2 severe obesity due t o excess calories with serious comorbidity in adult 06/21/2023 History of COVID-19 10/04/2021 Thyrotoxicosis without thyro id storm, unspecified thyrotoxicosis type 10/04/2021 Esophageal Reflux Overview (07/21/2020): Created by Conversion Encounters Date Type Department Care Team Description 06/03/2024 Refill [facility] [address], [address] [place] [address] Wilbert Baltazar, DO Med Change Request 06/02/2024 Refill [facility] [address], [address] [place] [address] Lovett Elsner, Jesu, DO Medication Refill from Last 3 Months Immunizations Immunization Administration Dates Next Due COVID-19 Monovalent 12+ (Pfizer 2021) 03/03/2021 HPV9 (Gardasil) 03/03/2021 Influenza Vaccine >6 months,quad, PF 11/06/2020, [...] Passive Smoke Exposure: Past Smokeless Tobacco: Never Tobacco Cessation:Counseling Given: Yes Alcohol Use Standard Drinks/Week Comments Yes 0 [...] on file 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 Gender Identity Not on file Sexual Orientation Not on file Last Filed Vital Signs Vital Sign Reading Time Taken Comments Blood Pressure 122/84 11/20/2023 2:59 PM CDT Pulse 80 11/20/2023 2:30 PM CDT Temperature 36.5 C (97.7 F) 11/20/2023 2:45 PM CDT Respiratory Rate 16 11/20/2023 2:59 PM CDT Oxygen Saturation 96% 11/20/2023 2:30 PM CDT Inhaled Oxygen Concentration - - Weight 99.8 kg (220 lb) 11/20/2023 7:15 AM CDT Height 172.7 cm (5' 8) 11/20/2023 7:15 AM CDT Body Mass Index 33.45 11/20/2023 7:15 AM CDT Plan of Treatment Health Maintenance Due Date Last Done Comments ADVANCE CARE PLANNING 1985 HEPATITIS B IMMUNIZATION (1 of 3 - 19+ 3-dose series) 12/19/2002 YEARLY PREVENTIVE VISIT 10/16/2015 10/15/2014, 10/15 DTAP/TDAP/TD IMMUNIZATION (2 - Td or Tdap) 04/30/2019 04/29/2009 HPV IMMUNIZATION (2 - 3-dose SCDM series) 03/31/2021 03/03/2021 COVID-19 Vaccine ( season) 2023 03/03/2021, 06/17/2020, 05/27/2020 LIPID 2023 PHQ-2 (once per calendar year) 2024 06/21/2023, 05/15/2023, 10/04/2021, Additional history exists INFLUENZA VACCINE (Season Ended) 2024 11/06/2020, 11/13/2018, 10/20/2011 ANNUAL REVIEW OF HM ORDERS 10/18/2024 10/19/2023 DIABETES SCREENING 06/20/2026 06/21/2023, 0 06/21/2023, 09/10/2021, Additional history exists ZOSTER IMMUNIZATION (1 of 2) 12/19/2033 HEPATITIS C SCREENING Completed 07/11/2016 HIV SCREENING Completed 07/11/2016 MENINGITIS IMMUNIZATION Aged Out No l onger eligible based on patient's age to complete this topic Pneumococcal Vaccine: Pediatrics (0 to 5 Years) and At-Risk Patients (6 to 49 Years) Aged Out No longer eligible based on patient's age to complete this topic Goals Goal Patient Goal Type Associated Problems Recent Progress Patient-Stated? Author MYC ECC SURG ENROLL Care Plan MyC ECC SURG ENROLL No [employer] Implanted Type Area Marketing Operations Consultant Device Identifier Shelf Expiration Date Model / Serial / Lot Mesh Surgical Inguinal Hrn Rep Macropor [id number] - [id number] Implanted:Qty: 1 on 11/20/2023 by Tangela Dupree MD at [facility] Mesh N/A: Abdomen COVIDIEN 01/06/2028 [id number] / / [id number] Procedures Procedure Name Priority Date/Time Associated Diagnosis [...] CDT Wilbert Lee DO LAB - BLOOD ORDERABLES Final Result [facility] [place] [facility] [address] [facility], Room [address] [address], [facility] * HIV Antigen Antibody Combo (07/11/2016 2:40 PM CDT) [facility] HIV Antigen Antibody Combo Negative Negative 07/11/2016 9:54 PM CDT [facility] Blood specimen (specimen) Venipuncture / Unknown 07/11/2016 2:40 PM CDT 07/11/2016 9:03 PM CDT Wilbert Lee DO LAB - BLOOD ORDERABLES Final Result Performing Organization Address [facility] Co de Phone Number [facility] [address] [address], [facility] [address] [address] * Hepatitis C antibody (07/11/2016 2:40 PM CDT) [facility] Hepatitis C Antibody Negative Negative 07/12/2016 8:22 AM CDT [facility] Blood specimen (specimen) Venipuncture / Unknown 07/11/2016 2:40 PM CDT 07/11/2016 9:03 PM CDT Wilbert Lee DO LAB - BLOOD ORDERABLES Final Result Performing Organization Address [facility] de Phone Number [facility] [address] [address], [facility] [address] [address] from Last 3 Months or Most Recently Relevant to Health Maintenance Additional Health Concerns Active Problems Noted Date Diagnosed Date MyC ECC SURG ENROLL 11/13/2023 Insurance 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 Care Teams Client Evaluator Relationship Specialty Start Date End Date Wilbert Baltazar DO [facility] [address] [place] [address] PCP - General 07/06/16 DoctorAny MD 03/25/13 Angella Weeks PA [facility] [address] [address] Physician Manufacturing Engineering Intern Urology 03/03/21 Wilbert Baltazar DO [address] [address] Assigned PCP 03/07/21 Sudheer Levy DO [address] [facility] [address] [place] [address] Assigned Sleep Provider 05/30/23 Tangela Dupree MD [address] [place] [address] Assigned Surgical Provider 11/29/23
--- OUTSIDE RECORDS SUMMARY | 2024-06-17 13:05 | XMS_ITS | Encounter Summary ---
Author Organization [facility] Address [address] [place] [address] Care Team Providers Care Inbound Call Center Agent Name Role Phone Doctor, None Unavailable Unavailable Wilbert Baltazar DO Primary Care Provider Sudheer Levy DO Unavailable [phone] Angella Weeks Unavailable [phone] Wilbert Baltazar DO Unavailable Angella Weeks Unavailable Amy Gentile MD Unavailable [phone] Sudheer Levy DO Unavailable Tangela Dupree MD Unavailable [phone] Encounter Details Date Type Department Care Team (Late st Contact Info) Description 11/02/2021 [facility] [address] [place] [address], [address] [place] [address] Geneva Monahan RN Social History Tobacco Use Types Packs/Day Years Used Date Smoking Tobacco: Never Smokeless Tobacco: Never Alcohol Use Standard Drinks/Week Comments Yes 0 (1 standard drink = 0.6 oz pur e alcohol) occassional PHQ-2 Answer Date Recorded PHQ-2 Score 3 10/04/2021 Sex and Gender Information Value Date Recorded Sex Assigned at Not on file 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 Gender Identity Not on file Sexual Orientation [...] documented as of this encounter Care Teams Inbound Call Center Agent Relationship Specialty Start Date End Date Wilbert Baltazar DO [address] [place] [address] PCP - General 07/06/16 DoctorAny MD 03/25/13 Sudheer Levy DO [address] [place], [place] [address] Assigned Sleep Provider 12/27/20 3 Angella Weeks PA [address] [place], [place] [address] Physician Gin Inspector Urology 03/03/21 Wilbert Baltazar DO [address] [place] [address] Assigned PCP 03/07/21 Angella Weeks PA [address] [place], [place] [address] Assigned Surgical Provider 03/14/2110/07/22 Amy Gentile MD [address] [place], [place] [address] Assigned Endocrinology Provider 10/09/21 04/20/23 Sudheer Levy DO [address] [address] Assigned Sleep Provider 05/30/23 Tangela Dupree MD [address] [place] [address] Assigned Surgical Provider 11/29/23 documented as of this encounter
[2024-06-17 13:09] VITALS: BP 113/77; PULSE 74; RESP 16; TEMP 36.8; O2SAT 96; BMI 40.4
--- NOTE | 2024-06-17 14:05 | ED_ITS ---
HPI - Eye Problem General Time Seen by Provider: 14:05 Date Seen: 06/17/24 Chief complaint: Eye Problems Stated complaint: on and off blurred vision Time Seen by Provider: 06/17/24 14:04 Source: patient and RN notes reviewed Mode of arrival: ambulatory Limitations: no limitations History of Present Illness HPI Narrative: Patient is a 38-year-old male coming in with complaint left visual disturbance. He has had left-sided migraines on and off the last 3 days, not today though. He felt it was above and behind his left eye. He has had migraines intermittently since his 20s. He maybe would get them every 6 months. No new head trauma, no fevers or chills, he has not been ill with anything. Patient went to the bathroom earlier today, when he finished, noticed he was losing his central vision, was blurry, moved out to the lateral vision as well. He has subsequently started to notice some right headache starting. It took about 30 minutes for his vision to returned normal. He did eat and drink something and just rested. He is not had any visual disturbances with prior headaches. He typically would get the migraine headache and just go rest. There was no eye pain with this. He does not use any tobacco products. He noted no issues with coordination of arms legs, speech was normal. He will typically just take Tylenol or ibuprofen for headache management. Related Data Home Medications ?Medication ?Instructions ?Recorded ?Confirmed bupropion HCl PO 10/04/23 Previous Rx's ?Medication ?Instructions ?Recorded omeprazole 40 mg capsule,delayed 40 mg PO DAILY #30 caps 10/04/23 release sucralfate 1 gram tablet (Carafate) 1 g PO TID PRN #30 tabs 10/04/23 Allergies Allergy/AdvReac Type Severity Reaction Status Date / Time No Known Drug Allergies Allergy Verified 10/17/23 20:45 Review of Systems Status of ROS: Reports: 6 or more systems reviewed and unremarkable except as noted in History and below [facility] Medical History (Updated 06/17/24 @ 16:50 by Kathrine Romano MD) Migraine headache ?G43.909 - Migraine, unspecified, not intractable, without status migrainosus (ICD-10) Social History Smoking Status: Never smoker Do you use any of these nicotine containing products: None Second hand tobacco smoke exposure: No How often do you have a drink containing alcohol: never How often do you have six or more drinks on one occasion: Never AUDIT-C Alcohol total score: 0 Non-prescribed substance use: denies use service: No Exam Const: Vital Signs, click to edit/add: Vital Signs - 24 hr 06/17/24 13:09 Temperature 98.2 F Pulse Rate [Pulse Oximeter] 74 Respiratory Rate 16 Blood Pressure [Ri ght Upper Arm] 113/77 Pulse Oximetry 96 Oxygen Delivery Me thod Room Air 38-year-old male is alert, interactive, no apparent distress. Patient was ambulatory into the ED of his own accord. Pupils equal round reactive, sclerae clear, extraocular movements intact, visual maddox normal by confrontation. Symmetrical facial function, normal sensation. Speech is normal. Neck is supple, no to giving stent chin noted. Lungs are clear, breathing easily on room air, no tachypnea, no accessory muscle use. CV regular rate and rhythm, no murmur, normal S1-S2. Strength is 5/5 and symmetric throughout upper and lower extremities, normal rapid alternating finger movements. No tremor, no dysmetria noted. Documenting provider has reviewed patient's vital signs: yes Course Course ED Course: Reviewed with patient that there can be visual changes with migraines. I will run his case by Neurology, see if they recommend any neuro imaging. He is back to baseline now. Reevaluation(s) Time of Reevaluation #1: 16:44 Reevaluation #1: Reviewed with patient that his workup is reassuring here. MRI consistent with punctate changes of someone with migraines but no evidence of any strokes. His labs are reassuring, MR angio of his brain is reassuring. EKG showed sinus rhythm. He receives the Tylenol, initially was helping but thinks the sound from being in the MRI increased his headache symptoms. Offered him other options here to treat his headache but he states he does not feel it is that bad. Would prefer to go home. He will continue with [id number] medicines and rest. We discussed the importance of staying hydrated in patients with migraine headaches. Consultations Consultation #1: Did talk with Neurology from [place] Dr. Willams. We reviewed patient's history. He does agree that this certainly could be atypical migraine but it has changed for the patient. Patient is a 38-year-old male and on cerebrovascular disease should be a consideration albeit he agrees that migraine etiology is more likely. He would recommend that we do neuro imaging of this patient. We reviewed this any is recommending MRI brain noncontrast and then MR angio without contrast of the head. If these are normal or without concern, patient can be discharge to home. Otherwise, I will contact him back if there are abnormalities. Patient was updated on this, will do basic labs and an EKG as well. He understands if there is abnormalities, more recommendations, potential further imaging might be indicated. He does have slight right headache now, will give him 1000 mg oral acetaminophen. Time: 14:45 Vital Signs Vital signs: Initial Vital Signs Temperature 98.2 F 06/17/24 13:09 Temperature Source Temporal Artery Scan 06/17/24 13:09 Pulse Rate 74 06/17/24 13:09 Respiratory Rate 16 06/17/24 13:09 Blood Pressure 113/77 06/17/24 13:09 Blood Pressure Mean 89 06/17/24 13:09 Blood Pressure Position Sitting 06/17/24 13:09 Pulse Oximetry 96 06/17/24 13:09 Oxygen Delivery Method Room Air 06/17/24 13:09 Vital Signs Temperature 98.2 F 06/17/24 13:09 Pulse Rate 74 06/17/24 13:09 Respiratory Rate 16 06/17/24 13:09 Blood Pressure 113/77 06/17/24 13:09 Pulse Oximetry 96 06/17/24 13:09 Oxygen Delivery Method Room Air 06/17/24 13:09 Temperature 98.2 F 06/17/24 13:09 Pulse Rate 74 06/17/24 13:09 Respiratory Rate 16 06/17/24 13:09 Blood Pressure 113/77 06/17/24 13:09 Pulse Oximetry 96 06/17/24 13:09 Oxygen Delivery Method Room Air 06/17/24 13:09 Medications Administered Medications: Discontinued Medications Generic Name Dose Route Start Last Admin Trade Name Freq PRN Reason Stop Dose Admin Acetaminophen 1,000 mg 06/17/24 15:46 06/17/24 15:51 Acetaminophen 500 Mg Tablet PO 06/17/24 15:47 1,000 mg ONCE ONE Administration MDM - Eye Problem Lab Data Attestation: I reviewed the patient's lab results. Labs: Lab Results 06/17/24 Range/Units 15:20 WBC 7.54 (4.50-11.00) K/uL RBC 5.09 (4.30-5.90) m/uL Hgb 14.8 (13.5-17.5) gm/dL Hct 43.7 (37.0-53.0) % MCV 86 (80-100) fL MCH 29 (26-34) pg MCHC 34 (32-36) gm/dL RDW Coeff of Jenny 11.9 (11.5-15.5) % Plt Count 210 (140-440) K/uL Neut % (Auto) 47.8 (42.0-72.0) % Lymph % (Auto) 39.1 (20-44) % [place] % (Auto) 8.8 (0.0-11.0) % Eos % (Auto) 3.2 (0.0-7.0) % Baso % (Auto) 0.7 (0.0-3.0) % Neut # (Auto) 3.61 (1.7-7.0) K/uL Lymph # (Auto) 2.95 H (0.90-2.90) K/uL [place] # (Auto) 0.70 (0.00-0.90) K/UL Eos # (Auto) 0.24 (0.00-0.50) K/uL Baso # (Auto) 0.05 (0.00-0.30) K/uL Abs Immat Gran (auto) 0.03 (0.00-0.30) K/uL Imm/Tot Granulo (auto) 0.4 % Sodium 139 (135-149) mmol/L Potassium 3.9 (3.6-5.1) mmol/L Chloride 103 (96-114) mmol/L Carbon Dioxide 29 (20-32) mmol/L Anion Gap 7 (7-15) mEq/L BUN 14 (5-24) mg/dL Creatinine 1.0 (0.5-1.5) mg/dL Estimated Creat Clear 88.61 Estimated GFR 98 ml/min Glucose 103 (60-115) mg/dL Calcium 9.0 (8.4-10.6) mg/dL Total Bilirubin 0.6 (0.1-1.5) mg/dL AST 36 H (12-35) U/L ALT 41 (4-50) U/L Alkaline Phosphatase 58 (40-150) U/L C-Reactive Protein < 0.5 L (0.5-1.0) mg/dL Total Protein 7.5 (6.0-8.3) g/dL Albumin 4.6 (3.3-5.0) g/dL Imaging Data MR Brain: Attestation: I have reviewed the pertinent imaging results. Radiologist's impression: Patient: CHACHO DOLL Facility:?[facility] Patient ID:?[id number] Site Patient ID:?[id number]. Site :?1985 Study:?MRI-Head WO-06/17/2024 4:28:10 PM Ordering Physician:?Juan Antonio Chisholm Final Report: INDICATION: Left-sided visual changes, history of migraine headaches. TECHNIQUE: Multisequence multiplanar MRI of the brain without the use of intravenous contrast. COMPARISON: None available. FINDINGS: No evidence of acute ischemia. Few punctate foci of T2 prolongation within the white matter of both cerebral hemispheres. The ventricles are normal in size. Flow voids of the larger intracranial arteries are preserved. Normal calvarial bone marrow signal intensity. Unremarkable orbits. Mild scattered paranasal sinus mucosal thickening. IMPRESSION: 1. No acute intracranial abnormality. Specifically, no evidence of acute ischemia. 2. Few punctate foci of T2 prolongation within the supratentorial white matter, nonspecific, but commonly seen in the setting of chronic migraine headaches. Dictated by Michael Kaiser MD @ 06/17/2024 4:33:57 PM (Electronic Signature) MR angio brain: Attestation: I have reviewed the pertinent imaging results. Radiologist's impression: Patient: CHACHO DOLL Facility:?[facility] Patient ID:?[id number] Site Patient ID:?[id number]. Site :?1985 Study:?MRI-Head Angio WO-06/17/2024 4:26:03 PM Ordering Physician:?Juan Antonio Chisholm Final Report: Indication: Left-sided visual changes, history of migraine headaches. Technique: Noncontrast MRA of the head utilizing [id number] technique. Multiple 3D reconstructions provided. Comparison: None available. Findings: Patent petrous, cavernous and supraclinoid internal carotid arteries. Unremarkable anterior and middle cerebral arteries. Anatomic variant supply to the left posterior cerebral artery with diminutive P1 segment. Dominant right intracranial vertebral artery with the left V4 segment terminating largely in PICA. The basilar artery is within limits. No intracranial aneurysm or high-flow vascular malformation is identified. Impression: Unremarkable noncontrast MRA of the head. Dictated by Michael Kaiser MD @ 06/17/2024 4:40:30 PM (Electronic Signature) ECG Data Attestation: I personally reviewed and interpreted this ECG as follows: (Normal sinus rhythm, 64 beats per minute. No arrhythmia, QT corrected 412 milliseconds. Some artifact in V1 but otherwise no ischemia or prior infarct.) ECG interpretation date: 06/17/24 ECG interpretation time: 15:20 Prior ECG tracings: not available for review Discharge Plan Discharge Clinical Impression: Migraine with visual aura Patient Disposition: Home, Self-Care Condition: Stable Instructions: Migraine Headache (ED) Additional Instructions: Do recommend drinking plenty of fluids, it is important for patients with migraine headaches to maintain good fluid volume. Can continue with Tylenol and ibuprofen per bottle directions as needed for ongoing symptoms. If you are having ongoing issues with migraine headaches, please schedule a clinic follow- up with your primary care provider. They may be comfortable working with migraine headaches or prefer referral to Neurology, ultimately your primary care provider will help you with this. If your headache is becoming severe and unresponsive to home remedies, have new or further concerns, can always return to the ED for further evaluation. Activity Level: Activity as Tolerated Prescriptions: No Action bupropion HCl [Wellbutrin] PO omeprazole 40 mg capsule,delayed release(DR/EC) 40 mg PO DAILY Qty: 30 2RF sucralfate [Carafate] 1 gram tablet 1 g PO TID PRNQty: 30 0RF Follow Up/Referrals: Provider,Not a Local [Primary Care Provider] - Stand Alone Forms: [employer] Info Instructions
--- OUTSIDE RECORDS SUMMARY | 2024-06-17 14:40 | XMS_ITS | Encounter Summary ---
Author Organization [facility] Address [address] [place] [address] Care Team Providers Care Winder Fixer Name Role Phone Doctor, None Unavailable Unavailable Wilbert Baltazar DO Primary Care Provider Angella Weeks Unavailable [phone] Wilbert Baltazar DO Unavailable Sudheer Levy DO Unavailable [phone] Tangela Dupree MD Unavailable [phone] Encounter Details Date Type Department Care Team (Late st Contact Info) Description 11/27/2023 My[facility] Medical Advice [facility] [address] [place] [address] Tangela Dupree MD [facility] [place], [place] [address] Social History Tobacco Use Types Packs/Day Years [...] on file 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 Gender Identity Not on file Sexual Orientation [...] documented as of this encounter Care Teams Winder Fixer Relationship Specialty Start Date End Date Wilbert Baltazar DO [address] [place] [address] PCP - General 07/06/16 DoctorAny MD 03/25/13 Angella Weeks PA [address] [place] [address] Physician Route Supervisor Urology 03/03/21 Wilbert Baltazar DO [address] [place] [address] Assigned PCP 03/07/21 Sudheer Levy DO [address] [place] [address] Assigned Sleep Provider 05/30/23 Tangela Dupree MD [address] [place] [address] Assigned Surgical Provider 11/29/23 documented as of this encounter
--- OUTSIDE RECORDS SUMMARY | 2024-06-17 14:40 | XMS_ITS | Encounter Summary ---
Author Organization [place] Address [address] [place] [address] Care Team Providers Care Tunnel Elastic Operator Zigzag Name Role Phone Doctor, None Unavailable Unavailable Wilbert Baltazar DO Primary Care Provider Sudheer Levy DO Unavailable [phone] Angella Weeks Unavailable [phone] Wilbert Baltazar DO Unavailable Angella Weeks Unavailable Amy Gentile MD Unavailable [phone] Sudheer Levy DO Unavailable Tangela Dupree MD Unavailable Encounter Details Date Type Department Care Team (Late st Contact Info) Description 04/06/2021 [facility]ly [facility] [address] [address] [facility] Social History Tobacco Use Types Packs/Day Years Used Date Smoking Tobacco: Never Smokeless Tobacco: Never Alcohol Use Standard Drinks/Week Comments Yes 0 (1 standard drink = 0.6 oz pur e alcohol) occassional PHQ-2 Answer Date Recorded PHQ-2 Score 2 04/05/2021 Sex and Gender Information Value Date Recorded Sex Assigned at Not on file 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 Gender Identity Not on file Sexual [...] documented as of this encounter Care Teams Tunnel Elastic Operator Zigzag Relationship Specialty Start Date End Date Wilbert Baltazar DO [address] [place] [address] PCP - General 07/06/16 DoctorAny MD 03/25/13 Sudheer Levy DO [address] [place] [address] Assigned Sleep Provider 12/27/20 3 Angella Weeks PA [address] [place], [place] [address] Physician Hop Grower Urology 03/03/21 Wilbert Baltazar DO [address] [place] [address] Assigned PCP 03/07/21 Angella Weeks PA [address] [place] [address] Assigned Surgical Provider 03/14/2110/07/22 Amy Gentile MD [address] [place] [address] Assigned Endocrinology Provider 10/09/21 04/20/23 Sudheer Levy DO [address] [facility] [address] [place], [place] [address] Assigned Sleep Provider 05/30/23 Tangela Dupree MD [address] [place], [place] [address] Assigned Surgical Provider 11/29/23 documented as of this encounter
--- OUTSIDE RECORDS SUMMARY | 2024-06-17 14:40 | XMS_ITS | Encounter Summary ---
Author Organization [facility] Address [address] [place] [address] Care Team Providers Care Drainlayer Name Role Phone Doctor, None Unavailable Unavailable Wilbert Baltazar DO Primary Care Provider Sudheer Levy DO Unavailable [phone] Angella Weeks Unavailable Wilbert Baltazar DO Unavailable Angella Weeks Unavailable Amy Gentile MD Unavailable [phone] Sudheer Levy DO Unavailable [phone] Tangela Dupree MD Unavailable [phone] Encounter Details Date Type Department Care Team (Late st Contact Info) Description 06/29/2021 Orders Only [facility] Centralized Scheduling [facility] [place] [address] Ruddy Kaiser MD [address] [place] [address] Encounter for laboratory testing for COVID-19 virus [...] on file 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 Additional information about this Emergency [...] COVID-19. This test was validated by the [facility]ious Diseases [facility]. This laboratory is certified under the Clinical Laboratory Improvement Amendments of 1988 (CLIA-88) as qualified to perform high complexity laboratory testing. us Ruddy Kaiser MD LAB - MICRO GENERAL ORDERABLES F inal Result [facility] Inf. Diseases Diag. Lab [address] [facility], [address] [place] [address], [place] [phone] documented in this encounter Visit Diagnoses Diagnosis Encounter for laboratory testing for COVID-19 virus documented in this encounter Additional Health Concerns Infection Onset Date Last Indicated Resolved Time Rule Out COVID-19 08/31/2021 08/31/2021 08/31/2021 6:10 PM CDT COVID-19 08/31/2021 08/31/2021 09/21/2021 11:3 9 PM CDT documented as of this encounter Care Teams Drainlayer Relationship Specialty Start Date End Date Wilbert Baltazar DO [address] [place] [address] PCP - General 07/06/16 Doctor, Any, 03/25/13 Sudheer Levy DO [address] [place], [place] 4[address] Assigned Sleep Provider 12/27/20 3 Angella Weeks PA [address] [place], [place] [address] Physician Dental Lab Technician Urology 03/03/21 Wilbert Baltazar DO [address] [place] [address] Assigned PCP 03/07/21 Angella Weeks PA [address] [place] [address] Assigned Surgical Provider 03/14/2110/07/22 Amy Gentile MD [address] [place], [place] [address] Assigned Endocrinology Provider 10/09/21 04/20/23 Sudheer Levy DO [address] [place], [place] 7820[address] Assigned Sleep Provider 05/30/23 Tangela Dupree MD [address] [place] [address] Assigned Surgical Provider 11/29/23 documented as of this encounter
--- OUTSIDE RECORDS SUMMARY | 2024-06-17 14:40 | XMS_ITS | Encounter Summary ---
Author Organization [facility] Address [address] [place] [address] Care Team Providers Care Occup Therapist Name Role Phone Doctor, None Unavailable Unavailable Wilbert Baltazar DO Primary Care Provider Sudheer Levy DO Unavailable [phone] Angella Weeks Unavailable [phone] Wilbert Baltazar DO Unavailable Angella Weeks Unavailable Amy Gentile MD Unavailable [phone] Sudheer Levy DO Unavailable Tangela Dupree MD Unavailable [phone] Reason for Visit * Reason Onset Date Comments MyChart Communication 09/21/2021 Thyroid la bs follow-up Encounter Details Date Type Department Care Team (Late st Contact Info) Description 09/21/2021 MyC Medical Advice [facility] [place] [address] [place] [address] Wilbert Baltazar DO [address] [place] [address] MyChart Communication (Thyroid labs follow... 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 Gender Identity Not on file Sexual [...] documented as of this encounter Care Teams Occup Therapist Relationship Specialty Start Date End Date Wilbert Baltazar DO [address] [facility] 275 [place] [address] PCP - General 07/06/16 DoctorAny MD 03/25/13 Sudheer Levy DO [address] [place], [place] [address] Assigned Sleep Provider 12/27/20 3 Angella Weeks PA [address] [place], [place] [address] Physician Community Outreach Specialist Urology 03/03/21 Wilbert Baltazar DO [address] [facility] [address] [place] [address] Assigned PCP 03/07/21 Angella Weeks PA [address] [place] [address] Assigned Surgical Provider 03/14/2110/07/22 Amy Gentile MD [address] [place], [place] [address] Assigned Endocrinology Provider 10/09/21 04/20/23 Sudheer Levy DO [address] [place], [place] [address] Assigned Sleep Provider 05/30/23 Tangela Dupree MD [address] [place], [place] [address] Assigned Surgical Provider 11/29/23 documented as of this encounter
--- OUTSIDE RECORDS SUMMARY | 2024-06-17 14:40 | XMS_ITS | Encounter Summary ---
Author Organization [facility] Address [address] [place] [address] Care Team Providers Care Knowledge Management Advisor Name Role Phone Doctor, None Unavailable Unavailable Wilbert Baltazar DO Primary Care Provider uSdheer Levy DO Unavailable Angella Weeks Unavailable [phone] Wilbert Baltazar DO Unavailable Angella Weeks Unavailable Amy Gentile MD Unavailable Sudheer Levy DO Unavailable Tangela Dupree MD Unavailable Encounter Details Date Type Department Care Team (Late st Contact Info) Description 03/30/2021 [facility] [address] [phone] Kellen Granda CMA Social History Tobacco Use Types Packs/Day Years Used Date Smoking Tobacco: Never Smokeless Tobacco: Never Alcohol Use Standard Drinks/Week Comments Yes 0 (1 standard drink = 0.6 oz pur e alcohol) occassional PHQ-2 Answer Date Recorded PHQ-2 Score 2 03/03/2021 Sex and Gender Information Value Date Recorded Sex Assigned at Not on file 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 No / Unsure 03/03/2021 10:23 AM BEHAVIORAL HEALTH CONSULTANT documented as of this encounter Plan of Treatment Not on file documented as of this encounter Visit Diagnoses Not on filedocumented in this encounter Additional Health Concerns Infection Onset Date Last Indicated Resolved Time Rule Out COVID-19 08/31/2021 08/31/2021 08/31/2021 6:10 PM CDT COVID-19 08/31/2021 08/31/2021 09/21/2021 11:3 9 PM CDT documented as of this encounter Care Teams Knowledge Management Advisor Relationship Specialty Start Date End Date Wilbert Baltazar DO [address] [place] [address] PCP - General 07/06/16 DoctorAny MD 03/25/13 Sudheer Levy DO [address] [place], [place] [address] Assigned Sleep Provider 12/27/20 3 Angella Weeks PA [address] [place], [place] [address] Physician Psychiatric Aide Urology 03/03/21 Wilbert Baltazar DO [address] [place] [address] Assigned PCP 03/07/21 Angella Weeks PA [address] [place] [address] Assigned Surgical Provider 03/14/2110/07/22 Amy Gentile MD [address] [place], [place] [address] Assigned Endocrinology Provider 10/09/21 04/20/23 Sudheer Levy DO [address] [place], [place] [address] Assigned Sleep Provider 05/30/23 Tangela Dupree MD [address] [place] [address] Assigned Surgical Provider 11/29/23 documented as of this encounter
--- OUTSIDE RECORDS SUMMARY | 2024-06-17 14:40 | XMS_ITS | Encounter Summary ---
Author Organization [facility] Address [address] [place] [address] Care Team Providers Care Quality Control Lab Technician Name Role Phone Doctor, None Unavailable Unavailable Wilbert Baltazar DO Primary Care Provider Sudheer Levy DO Unavailable [phone] Angella Weeks Unavailable Wilbert Baltazar DO Unavailable Angella Weeks Unavailable [phone] Amy Gentile MD Unavailable [phone] Sudheer Levy DO Unavailable Tangela Dupree MD Unavailable [phone] Encounter Details Date Type Department Care Team (Late st Contact Info) Description 09/09/2021 [facility] [place] Medical Advice [facility] [address], [address] [place] [phone] Wilbert Baltazar DO [address] [facility] [address] [place] [address] Social History Tobacco Use Types Packs/Day Years Used Date Smoking Tobacco: Never Smokeless Tobacco: Never Alcohol Use Standard Drinks/Week Comments Yes 0 (1 standard drink = 0.6 oz pur e alcohol) occassional PHQ-2 Answer Date Recorded PHQ-2 Score 2 04/05/2021 Sex and Gender Information Value Date Recorded Sex Assigned at Not on file 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 Gender Identity Not on file Sexual [...] documented as of this encounter Care Teams Quality Control Lab Technician Relationship Specialty Start Date End Date Wilbert Baltazar DO [address] [place] [address] PCP - General 07/06/16 DoctorAny MD 03/25/13 Sudheer Levy DO [address] [place], [place] [address] Assigned Sleep Provider 12/27/20 3 Angella Weeks PA [address] [place], [place] [address] Physician Candle Wrapper Urology 03/03/21 Wilbert Baltazar DO [address] [place] [address] Assigned PCP 03/07/21 Angella Weeks PA [address] [place] [address] Assigned Surgical Provider 03/14/2110/07/22 Amy Gentile MD [address] [place], [place] [address] Assigned Endocrinology Provider 10/09/21 04/20/23 Sudheer Levy DO [address] [place], [place] [address] Assigned Sleep Provider 05/30/23 Tangela Dupree MD [address] [place], [place] [address] Assigned Surgical Provider 11/29/23 documented as of this encounter
--- OUTSIDE RECORDS SUMMARY | 2024-06-17 14:41 | XMS_ITS | Clinical Summary ---
Author Organization [facility] Address [address] [place] [address] Care Team Providers Care Fish Net Stringer Name Role Phone Doctor, None Unavailable Unavailable Wilbert Baltazar DO Primary Care Provider Angella Weeks Unavailable [phone] Wilbert Baltazar DO Unavailable Sudheer Levy DO Unavailable [phone] Tangela Dupree MD Unavailable [phone] Allergies No known active allergies Medications cetirizine [...] Type Department Care Team Description 06/03/2024 Refill [facility] [address], [address] [place] [address] Wilbert Baltazar, DO Med Change Request 06/02/2024 Refill [facility] [address] [place] [address] Lovett Elsner, Jesu, DO Medication [...] on file 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, [address] [address], [facility] * HIV Antigen Antibody Combo (07/11/2016 2:40 PM CDT) [facility] HIV Antigen Antibody Combo Negative Negative 07/11/2016 9:54 PM CDT [facility] Blood specimen (specimen) Venipuncture / Unknown 07/11/2016 2:40 PM CDT 07/11/2016 9:03 PM CDT Wilbert Lee DO LAB - BLOOD ORDERABLES Final Result Performing Organization Address [facility] Co de Phone Number [facility] [address] [address], [facility] [address] [address] * Hepatitis C antibody (07/11/2016 2:40 PM CDT) [facility] Hepatitis C Antibody Negative Negative 07/12/2016 8:22 AM CDT [facility] Blood specimen (specimen) Venipuncture / Unknown 07/11/2016 2:40 PM CDT 07/11/2016 9:03 PM CDT Wilbert Lee DO LAB - BLOOD ORDERABLES Final Result Performing Organization Address [facility] de Phone Number [facility] [address] [address], [facility] [address] [address] from Last 3 Months or Most Recently Relevant to Health Maintenance Additional Health Concerns Active Problems Noted Date Diagnosed Date MyC ECC SURG ENROLL 11/13/2023 Insurance [employer] 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 [employer] Care Teams Fish Net Stringer Relationship Specialty Start Date End Date Wilbert Baltazar DO [facility] [address] [place] [address] PCP - General 07/06/16 DoctorAny MD 03/25/13 Angella Weeks PA [facility] [address] Physician Customer Professional Urology 03/03/21 Wilbert Baltazar DO [address] [address] Assigned PCP 03/07/21 Sudheer Levy DO [address] [facility] 106 [place] [address] Assigned Sleep Provider 05/30/23 Tangela Dupree MD [address] [place] [address] Assigned Surgical Provider 11/29/23
--- OUTSIDE RECORDS SUMMARY | 2024-06-17 14:41 | XMS_ITS | Encounter Summary ---
Author Organization [place] [facility] Address [address] [place] [address]. [place] [address] Care Team Providers Care Lace Mender Name Role Phone Doctor, None Unavailable Unavailable Wilbert Baltazar DO Primary Care Provider Jacinta Villegas MD Unavailable [phone] Sudheer Levy DO Unavailable [phone] Angella Weeks Unavailable [phone] Wilbert Baltazar DO Unavailable Angella Weeks Unavailable [phone] Amy Gentile MD Unavailable [phone] Sudheer Levy DO Unavailable Tangela Dupree MD Unavailable Encounter Details Date Type Department Care Team (Late st Contact Info) Description 12/23/2020 [facility] [place] [facility] [address], [address] [place] [address] [place] Social History Tobacco Use Types Packs/Day Years Used Date Smoking Tobacco: Never Smokeless Tobacco: Never Alcohol Use Standard Drinks/Week Comments Yes 0 (1 standard drink = 0.6 oz pur e alcohol) occassional PHQ-2 Answer Date Recorded PHQ-2 Score 0 05/14/2020 Sex and Gender Information Value Date Recorded Sex Assigned at Not on file 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 Gender Identity Not on file Sexual [...] documented as of this encounter Care Teams Lace Mender Relationship Specialty Start Date End Date Wilbert Baltazar DO [address] [place] [address] PCP - General 07/06/16 Doctor, Any, 03/25/13 Jacinta Villegas MD [address] [place] [address] 96 [place], [place] [address] Assigned PCP 07/22/20 03/06/21 Sudheer Levy DO [address] [place], [place] [address] Assigned Sleep Provider 12/27/20 3 Angella Weeks PA [address] [place], [place] [address] Physician Medical Apparatus Model Maker Urology 03/03/21 Wilbert Baltazar DO [address] [place] [address] Assigned PCP 03/07/21 Angella Weeks PA [address] [place], [place] [address] Assigned Surgical Provider 03/14/2110/07/22 Amy Gentile MD [address] [address] Assigned Endocrinology Provider 10/09/21 04/20/23 Sudheer Levy DO [address] [address] Assigned Sleep Provider 05/30/23 Tangela Dupree MD [address] [place] [address] Assigned Surgical Provider 11/29/23 documented as of this encounter
--- OUTSIDE RECORDS SUMMARY | 2024-06-17 14:41 | XMS_ITS | Encounter Summary ---
Author Organization [facility] Address [address] [place] [address]. [place] [address] Care Team Providers Care Medical Assistant Prn Name Role Phone Doctor, None Unavailable Unavailable Wilbert Baltazar DO Primary Care Provider Angella Weeks Unavailable Wilbert Baltazar DO Unavailable Sudheer Levy DO Unavailable Tangela Dupree MD Unavailable [phone] Reason for Visit * Reason Comments Medication Refill Encounter Details Date Type Department Care Team (Late st Contact Info) Description 06/02/2024 Refill [facility] [address] [facility], [address] [place] [address] Wilbert Baltazar DO [address] [facility] [address] [place] [address] Medication Refill Social History Tobacco Use Types [...] on file 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 Gender Identity Not on file Sexual [...] documented as of this encounter Care Teams Medical Assistant Prn Relationship Specialty Start Date End Date Wilbert Baltazar DO [address] [place] [address] PCP - General 07/06/16 Any Chavez MD 03/25/13 Angella Weeks PA [address] [place] [address] Physician Desk Interviewer Urology 03/03/21 Wilbert Baltazar DO [address] [place] [address] Assigned PCP 03/07/21 Sudheer Levy DO [address] [place] [address] Assigned Sleep Provider 05/30/23 Tangela Dupree MD [address] [place] [address] Assigned Surgical Provider 11/29/23 documented as of this encounter
--- OUTSIDE RECORDS SUMMARY | 2024-06-17 14:41 | XMS_ITS | Encounter Summary ---
Author Organization [facility] Address [address] [place] [address] Care Team Providers Care Java Software Developer Name Role Phone Doctor, None Unavailable Unavailable Wilbert Baltazar DO Primary Care Provider Jacinta Villegas MD Unavailable [phone] Sudheer Levy DO Unavailable [phone] Angella Weeks Unavailable [phone] Wilbert Baltazar DO Unavailable [phone] Angella Weeks Unavailable Amy Gentile MD Unavailable [phone] Sudheer Levy DO Unavailable Tangela Dupree MD Unavailable [phone] Encounter Details Date Type Department Care Team (Late st Contact Info) Description [facility] [address] [facility] [place] [address] Social History Tobacco Use Types Packs/Day Years Used Date Smoking Tobacco: Never Smokeless Tobacco: Never Alcohol Use Standard Drinks/Week Comments Yes 0 (1 standard drink = 0.6 oz pur e alcohol) PHQ-2 Answer Date Recorded PHQ-2 Score 0 05/14/2020 Sex and Gender Information Value Date Recorded Sex Assigned at Not on file 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 Gender Identity Not on file Sexual Orientation [...] documented as of this encounter Care Teams Java Software Developer Relationship Specialty Start Date End Date Wilbert Baltazar DO [address] [address] PCP - General 07/06/16 DoctorAny MD 03/25/13 Jacinta Villegas MD [address] [address] Assigned PCP 07/22/20 03/06/21 Sudheer Lvey DO [address] [place], [place] [address] Assigned Sleep Provider 12/27/20 3 Angella Weeks PA [address] [place] [address] Physician Media Sales Representative Urology 03/03/21 Wilbert Baltazar DO [address] [facility] [address] [address] Assigned PCP 03/07/21 Angella Weeks PA [address] [place] [address] Assigned Surgical Provider 03/14/2110/07/22 Amy Gentile MD [address] [address] Assigned Endocrinology Provider 10/09/21 04/20/23 Sudheer Levy DO [address] [facility] [address] [place] [address] Assigned Sleep Provider 05/30/23 Tangela Dupree MD [address] [place] [address] Assigned Surgical Provider 11/29/23 documented as of this encounter
--- OUTSIDE RECORDS SUMMARY | 2024-06-17 14:41 | XMS_ITS | Encounter Summary ---
Author Organization [facility] Address [address] [place] [address] Care Team Providers Care Transit Planning Director Name Role Phone Doctor, None Unavailable Unavailable Wilbert Baltazar DO Primary Care Provider Jacinta Villegas MD Unavailable [phone] Sudheer Levy DO Unavailable Angella Weeks Unavailable [phone] Wilbert Baltazar DO Unavailable Angella Weeks Unavailable Amy Gentile MD Unavailable Sudheer Levy DO Unavailable Tangela Dupree MD Unavailable Encounter Details Date Type Department Care Team (Late st Contact Info) Description 09/24/2020 [facility] [address] [id number] Cleo Montalvo Social History Tobacco Use Types Packs/Day Years Used Date Smoking Tobacco: Never Smokeless Tobacco: Never Alcohol Use Standard Drinks/Week Comments Yes 0 (1 standard drink = 0.6 oz pur e alcohol) occassional PHQ-2 Answer Date Recorded PHQ-2 Score 0 05/14/2020 Sex and Gender Information Value Date Recorded Sex Assigned at Not on file 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 Gender Identity Not on file Sexual Orientation [...] documented as of this encounter Care Teams Transit Planning Director Relationship Specialty Start Date End Date Wilbert Baltazar DO [address] [place] [address] PCP - General 07/06/16 DoctorAny MD 03/25/13 Jacinta Villegas MD [address] [place] [address] 96 [place] [address] Assigned PCP 07/22/20 03/06/21 Sudheer Levy DO [address] [place] [address] Assigned Sleep Provider 12/27/20 3 Angella Weeks PA [address] [place] [address] Physician Manager Of It Urology 03/03/21 Wilbert Baltazar DO [address] [place] [address] Assigned PCP 03/07/21 Angella Weeks PA [address] [place] [address] Assigned Surgical Provider 03/14/2110/07/22 Amy Gentile MD [address] [place], [place] [address] Assigned Endocrinology Provider 10/09/21 04/20/23 Sudheer Levy DO [address] [address]0000[address] Assigned Sleep Provider 05/30/23 Tangela Dupree MD [address] [place], [place] [address] Assigned Surgical Provider 11/29/23 documented as of this encounter
--- OUTSIDE RECORDS SUMMARY | 2024-06-17 14:41 | XMS_ITS | Encounter Summary ---
Author Organization [facility] Address [address] [place] [address] Care Team Providers Care Railway Traction Line Worker Name Role Phone Doctor, None Unavailable Unavailable Wilbert Baltazar DO Primary Care Provider Sudheer Levy DO Unavailable Angella Weeks Unavailable [phone] Wilbert Baltazar DO Unavailable Angella Weeks Unavailable [phone] Amy Gentile MD Unavailable [phone] Sudheer Levy DO Unavailable [phone] Tangela Dupree MD Unavailable Encounter Details Date Type Department Care Team (Late st Contact Info) Description 11/02/2021 [facility] 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 Gender Identity Not on file Sexual Orientation [...] documented as of this encounter Care Teams Railway Traction Line Worker Relationship Specialty Start Date End Date Wilbert Baltazar DO [address] [place] [address] PCP - General 07/06/16 DoctorAny MD 03/25/13 Sudheer Levy DO [address] [place], [place] [address] Assigned Sleep Provider 12/27/20 3 Angella Weeks PA [address] [place], [place] [address] Physician Steel Handler Urology 03/03/21 Wilbert Baltazar DO [address] [place] [address] Assigned PCP 03/07/21 Angella Weeks PA [address] [place], [place] [address] Assigned Surgical Provider 03/14/2110/07/22 Amy Gentile MD [address] [place], [place] [address] Assigned Endocrinology Provider 10/09/21 04/20/23 Sudheer Levy DO [address] [address] Assigned Sleep Provider 05/30/23 Tangela Dupree MD [address] [place] [address] Assigned Surgical Provider 11/29/23 documented as of this encounter
--- OUTSIDE RECORDS SUMMARY | 2024-06-17 14:41 | XMS_ITS | Encounter Summary ---
Author Organization [facility] Address [address] [place] [address] Care Team Providers Care Corporate Travel Coordinator Name Role Phone Doctor, None Unavailable Unavailable Wilbert Baltazar DO Primary Care Provider Jacinta Villegas MD Unavailable [phone] Sudheer Levy DO Unavailable Angella Weeks Unavailable [phone] Wilbert Baltazar DO Unavailable [phone] Angella Weeks Unavailable Amy Gentile MD Unavailable Sudheer Levy DO Unavailable [phone] Tangela Dupree MD Unavailable [phone] Encounter Details Date Type Department Care Team (Late st Contact Info) Description [facility] [address] [facility] [place] [id number] Social History Tobacco Use Types Packs/Day Years Used Date Smoking Tobacco: Never Smokeless Tobacco: Never Alcohol Use Standard Drinks/Week Comments Yes 0 (1 standard drink = 0.6 oz pur e alcohol) PHQ-2 Answer Date Recorded PHQ-2 Score 0 05/14/2020 Sex and Gender Information Value Date Recorded Sex Assigned at Not on file 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 Gender Identity Not on file Sexual Orientation [...] documented as of this encounter Care Teams Corporate Travel Coordinator Relationship Specialty Start Date End Date Wilbert Baltazar DO [address] [facility] [address] [place], [place] [address] PCP - General 07/06/16 DoctorAny MD 03/25/13 Jacinta Villegas MD [address] [facility] 96 [place], [place] [id number] Assigned PCP 07/22/20 03/06/21 Sudheer Levy DO [address] [place], [place] [address] Assigned Sleep Provider 12/27/20 3 Angella Weeks PA [address] [place], [place] [address] Physician Radiation Oncology Therapist Urology 03/03/21 Wilbert Baltazar DO [address] [facility] [address] [place] [address] Assigned PCP 03/07/21 Angella Weeks PA [address] [place] [address] Assigned Surgical Provider 03/14/2110/07/22 Amy Gentile MD [address] [place], [place] [address] Assigned Endocrinology Provider 10/09/21 04/20/23 Sudheer Levy DO [address] [place], [place] [address] Assigned Sleep Provider 05/30/23 Tangela Dupree MD [address] [place], [place] 79[address] Assigned Surgical Provider 11/29/23 documented as of this encounter
--- OUTSIDE RECORDS SUMMARY | 2024-06-17 14:41 | XMS_ITS | Encounter Summary ---
Author Organization [facility] Address [address] [place] [address] Care Team Providers Care Auto Accessories Installer Name Role Phone Doctor, None Unavailable Unavailable Wilbert Baltazar DO Primary Care Provider Jacinta Villegas MD Unavailable [phone] Sudheer Levy DO Unavailable [phone] Angella Weeks Unavailable [phone] Wilbert Baltazar DO Unavailable Angella Weeks Unavailable Amy Gentile MD Unavailable [phone] Sudheer Levy DO Unavailable Tangela Dupree MD Unavailable [phone] Encounter Details Date Type Department Care Team (Late st Contact Info) Description 12/15/2020 [facility]ice [facility] [address] [address] Kellen Granda CMA Social History Tobacco Use Types Packs/Day Years Used Date Smoking Tobacco: Never Smokeless Tobacco: Never Alcohol Use Standard Drinks/Week Comments Yes 0 (1 standard drink = 0.6 oz pur e alcohol) occassional PHQ-2 Answer Date Recorded PHQ-2 Score 0 05/14/2020 Sex and Gender Information Value Date Recorded Sex Assigned at Not on file 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 Gender Identity Not on file Sexual Orientation [...] documented as of this encounter Care Teams Auto Accessories Installer Relationship Specialty Start Date End Date Wilbert Baltazar DO [address] [facility] 275 [place] [address] PCP - General 07/06/16 Doctor, Any, 03/25/13 Jacinta Villegas MD [address] [place] [id number] Assigned PCP 07/22/20 03/06/21 Sudheer Levy DO [address] [place] [address] Assigned Sleep Provider 12/27/20 3 Angella Weeks PA [address] [place] [address] Physician General Warehouse Associate Urology 03/03/21 Wilbert Baltazar DO [address] [address] Assigned PCP 03/07/21 Angella Weeks PA [address] [place] [address] Assigned Surgical Provider 03/14/2110/07/22 Amy Gentile MD [address] [place] [address] Assigned Endocrinology Provider 10/09/21 04/20/23 Sudheer Levy DO [address] [place], [place] [address] Assigned Sleep Provider 05/30/23 Tangela Dupree MD [address] [place] [address] Assigned Surgical Provider 11/29/23 documented as of this encounter
--- OUTSIDE RECORDS SUMMARY | 2024-06-17 14:41 | XMS_ITS | Encounter Summary ---
Author Organization [facility] Address [address] [place] [address]. [place] [address] Care Team Providers Care Data Designer Name Role Phone Doctor, None Unavailable Unavailable Wilbert Baltazar DO Primary Care Provider Jacinta Villegas MD Unavailable Sudheer Levy DO Unavailable Angella Weeks Unavailable Wilbert Baltazar DO Unavailable Angella Weeks Unavailable [phone] Amy Gentile MD Unavailable [phone] Sudheer Levy DO Unavailable Tangela Dupree MD Unavailable Encounter Details Date Type Department Care Team (Late st Contact Info) Description 06/15/2020 Documentation Only [facility] [address] [place] [phone] Unknown, Provider Social History Tobacco Use Types [...] on file 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 Gender Identity Not on file Sexual Orientation [...] documented as of this encounter Care Teams Data Designer Relationship Specialty Start Date End Date Wilbert Baltazar DO [address] [address] PCP - General 07/06/16 Doctor, Any, 03/25/13 Jacinta Villegas MD 480 [facility] [address] [place] [address] Assigned PCP 07/22/20 03/06/21 Sudheer Levy DO [address] [place] [address] Assigned Sleep Provider 12/27/20 Angella Weeks PA [address] [place] [address] Physician Towel Hemmer Urology 03/03/21 Wilbert Baltazar DO [address] [facility] [address] [place], [place] [address] Assigned PCP 03/07/21 Angella Weeks PA [address] [place] [address] Assigned Surgical Provider 03/14/2110/07/22 Amy Gentile MD [address] [place] [address] Assigned Endocrinology Provider 10/09/21 04/20/23 Sudheer Levy DO [address] [place] [address] Assigned Sleep Provider 05/30/23 Tangela Dupree MD [address] [place] [address] Assigned Surgical Provider 11/29/23 documented as of this encounter
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
--- OUTSIDE RECORDS SUMMARY | 2024-06-17 14:41 | XMS_ITS | Encounter Summary ---
Author Organization [facility] Address [address] [place] [address]. [place] [address] Care Team Providers Care Quality Assurance Representative Name Role Phone Doctor, None Unavailable Unavailable Wilbert Baltazar DO Primary Care Provider Angella Weeks Unavailable [phone] Wilbert Baltazar DO Unavailable Sudheer Levy DO Unavailable [phone] Tangela Dupree MD Unavailable Reason for Visit * Reason Comments Med Change Request Encounter Details Date Type Department Care Team (Late st Contact Info) Description 06/03/2024 [facility] [address] [facility], [address] [place] [address] Wilbert Baltazar DO [address] [facility] [address] [place], [place] [id number] Med Change Request Social History Tobacco Use [...] on file 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 Gender Identity Not on file Sexual Orientation [...] as of this encounter Care Teams Quality Assurance Representative Relationship Specialty Start Date End Date Wilbert Baltazar DO [address] [place] [address] PCP - General 07/06/16 Any Chavez MD 03/25/13 Angella Weeks PA [address] [place] [address] Physician Mental Health Consultant Urology 03/03/21 Wilbert Baltazar DO [address] [place] [address] Assigned PCP 03/07/21 Sudhere Levy DO [address] [place] [address] Assigned Sleep Provider 05/30/23 Tangela Dupree MD [address] [place] [address] Assigned Surgical Provider 11/29/23 documented as of this encounter
--- OUTSIDE RECORDS SUMMARY | 2024-06-17 14:41 | XMS_ITS | Encounter Summary ---
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 Name Role Phone Doctor, None Unavailable Unavailable Wilbert Baltazar DO Primary Care Provider Jacinta Villegas MD Unavailable [phone] Sudheer Levy DO Unavailable Angella Weeks Unavailable [phone] Wilbert Baltazar DO Unavailable Angella Weeks Unavailable Amy Gentile MD Unavailable [phone] Sudheer Levy DO Unavailable Tangela Dupree MD Unavailable Encounter Details Date Type Department Care Team (Late st Contact Info) Description [facility]isner[facility] MD [address] [facility] [place] [id number] Social History Tobacco Use Types Packs/Day Years Used Date Smoking Tobacco: Never Smokeless Tobacco: Never Alcohol Use Standard Drinks/Week Comments Yes 0 (1 standard drink = 0.6 oz pur e alcohol) occassional PHQ-2 Answer Date Recorded PHQ-2 Score 0 05/14/2020 Sex and Gender Information Value Date Recorded Sex Assigned at Not on file 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 Gender Identity Not on file [...] documented as of this encounter Care Teams Flame Hardening Machine Operator Relationship Specialty Start Date End Date Wilbert Baltazar DO [address] [facility] [address] [place], [place] [address] PCP - General 07/06/16 DoctorAny MD 03/25/13 Jacinta Villegas MD [address] [facility] 96 [place], [place] [address] Assigned PCP 07/22/20 03/06/21 Sudheer Levy DO [address] [place], [place] [address] Assigned Sleep Provider 12/27/20 3 Angella Weeks PA [address] [place], [place] [address] Physician Chief Media Officer Urology 03/03/21 Wilbert Baltazar DO [address] [facility] [address] [place] [address] Assigned PCP 03/07/21 Angella Weeks PA [address] [place] [address] Assigned Surgical Provider 03/14/2110/07/22 Amy Gentile MD [address] [place], [place] [address] Assigned Endocrinology Provider 10/09/21 04/20/23 Sudheer Levy DO [address] [place], [place] [address] Assigned Sleep Provider 05/30/23 Tangela Dupree MD [address] [place], [place] [address] Assigned Surgical Provider 11/29/23 documented as of this encounter
--- NOTE | 2024-06-17 14:54 | CRLHL7_ITS ---
For Patients: As a result of the Century Cures Act, medical imaging exams and procedure reports are released immediately into your electronic medical record. You may view this report before your referring provider. If you have questions, please contact your health care provider. Indication: Left-sided visual changes, history of migraine headaches. Technique: Noncontrast MRA of the head utilizing [id number] technique. Multiple 3D reconstructions provided. Comparison: None available. Findings: Patent petrous, cavernous and supraclinoid internal carotid arteries. Unremarkable anterior and middle cerebral arteries. Anatomic variant supply to the left posterior cerebral artery with diminutive P1 segment. Dominant right intracranial vertebral artery with the left V4 segment terminating largely in PICA. The basilar artery is within limits. No intracranial aneurysm or high-flow vascular malformation is identified. Impression: Unremarkable noncontrast MRA of the head. Dictated by Michael Kaiser MD @ 06/17/2024 4:40:30 PM (Electronically Signed)
--- NOTE | 2024-06-17 14:54 | CRLHL7_ITS ---
For Patients: As a result of the Century Cures Act, medical imaging exams and procedure reports are released immediately into your electronic medical record. You may view this report before your referring provider. If you have questions, please contact your health care provider. INDICATION: Left-sided visual changes, history of migraine headaches. TECHNIQUE: Multisequence multiplanar MRI of the brain without the use of intravenous contrast. COMPARISON: None available. FINDINGS: No evidence of acute ischemia. Few punctate foci of T2 prolongation within the white matter of both cerebral hemispheres. The ventricles are normal in size. Flow voids of the larger intracranial arteries are preserved. Normal calvarial bone marrow signal intensity. Unremarkable orbits. Mild scattered paranasal sinus mucosal thickening. IMPRESSION: 1. No acute intracranial abnormality. Specifically, no evidence of acute ischemia. 2. Few punctate foci of T2 prolongation within the supratentorial white matter, nonspecific, but commonly seen in the setting of chronic migraine headaches. Dictated by Michael aKiser MD @ 06/17/2024 4:33:57 PM (Electronically Signed)
[2024-06-17 15:45] LABS: Basophils Absolute Auto 0.05 K/uL (0.00-0.30); Basophils Percent Auto 0.7 % (0.0-3.0); Eosinophils Absolute Auto 0.24 K/uL (0.00-0.50); Eosinophils Percent Auto 3.2 % (0.0-7.0); Hematocrit 43.7 % (37.0-53.0); Hemoglobin* 14.8 gm/dL (13.5-17.5); Immature Granulocytes Abs Auto 0.03 K/uL (0.00-0.30); Immature Granulocytes Pct Auto 0.4 %; Lymphocytes Absolute Auto 2.95 K/uL (0.90-2.90); Lymphocytes Percent Auto 39.1 % (20-44); Mean Corpuscular HGB Conc 34 gm/dL (32-36); Mean Corpuscular Hemoglobin 29 pg (26-34); Mean Corpuscular Volume 86 fL (80-100); Monocytes Percent Auto 8.8 % (0.0-11.0); Neutrophils Absolute Auto 3.61 K/uL (1.7-7.0); Neutrophils Percent Auto 47.8 % (42.0-72.0); Platelet Count* 210 K/uL (140-440); RDW Coefficient of Variation % 11.9 % (11.5-15.5); Red Blood Count 5.09 m/uL (4.30-5.90); White Blood Count* 7.54 K/uL (4.50-11.00)
[2024-06-17] MEDS: ACETAMINOPHEN 500 MG TABLET 1000 MG PO (15:51)
[2024-06-17 15:53] LABS: Slide Review Reflex No
[2024-06-17 16:17] LABS: Albumin* 4.6 g/dL (3.3-5.0); Chloride* 103 mmol/L (96-114); Potassium* 3.9 mmol/L (3.6-5.1); Sodium* 139 mmol/L (135-149)
[2024-06-17 16:19] LABS: Blood Urea Nitrogen* 14 mg/dL (5-24); Est. Creatinine Clearance* 88.61; Estimated Glomerular Filt Rate 98 ml/min
[2024-06-17 16:20] LABS: Alanine Aminotransferase* 41 U/L (4-50); Alkaline Phosphatase* 58 U/L (40-150); Anion Gap 7 mEq/L (7-15); Aspartate Amino Transferase* 36 U/L (12-35); Bilirubin Total* 0.6 mg/dL (0.1-1.5); Carbon Dioxide* 29 mmol/L (20-32); Total Protein* 7.5 g/dL (6.0-8.3)
[2024-06-17 16:31] LABS: C Reactive Protein* < 0.5 mg/dL (0.5-1.0)
[2024-06-17 16:36] LABS: Glucose* 103 mg/dL (60-115)
[2024-06-17 16:54] VITALS: BP 118/68; PULSE 74; RESP 16; TEMP 36.8; O2SAT 98
== END 2024-06-17 16:54 | disposition home or self-care (01) ==
PROVIDERS: Emergency Provider Family Medicine
DX: G43.109 Migraine with aura, not intractable, without status migrainosus (principal); H53.9 Unspecified visual disturbance
CPT/HCPCS: 36415; 70544; 70551; 80053; 85025; 86140; 99284; 99285; A9270

== ENCOUNTER 2024-10-21 07:30 | Outpatient (CLI) | payer OTHER, SELFPAY | END 2024-10-21 07:31 | disposition home or self-care (01) | LOC: NFLDREF 10-25 02:16 | PROVIDERS: Visit Provider Physician Assistant Surgical | DX: K21.9 Gastro-esophageal reflux disease without esophagitis (principal) | CPT/HCPCS: 87338 ==